=== PATIENT | male | born 1935 | race Caucasian/White ===

== ENCOUNTER 2018-07-21 12:53 | Outpatient (CLI) | payer MEDICARE, OTHER | END 2018-07-21 12:54 | disposition home or self-care (01) | LOC: DI 12:53 | PROVIDERS: ATTEND Internal Medicine Cardiovascular Disease | DX: I11.0 Hypertensive heart disease with heart failure (principal); I50.33 Acute on chronic diastolic (congestive) heart failure; I48.91 Unspecified atrial fibrillation; I77.810 Thoracic aortic ectasia | CPT/HCPCS: 93306 ==

== ENCOUNTER 2019-09-30 13:52 | Outpatient (CLI) | payer MEDICARE, OTHER ==
[2019-09-30 14:20] LABS: CALCIUM 9.6 mg/dL (8.5-10.3); CREATININE 2.2 mg/dL (0.6-1.2)
== END 2019-09-30 13:53 | disposition home or self-care (01) ==
LOC: LAB 13:52
PROVIDERS: ATTEND Internal Medicine
DX: I50.32 Chronic diastolic (congestive) heart failure (principal)
CPT/HCPCS: 36415; 80048

== ENCOUNTER 2020-02-29 22:11 | Emergency (ER) | payer MEDICARE, OTHER ==
--- NOTE | 2020-02-29 22:17 | ED Physician Documentation ---
History of Present Illness - Stated complaint Stated Complaint: ARM LAC - History obtained from History obtained from: Patient (The patient is a very pleasant 85-year-old male who presents with left forearm skin tear he has on Coumadin he denies any other complaints the patient was in his yard doing some yard work when he was trying to move a tree branch when the tree branch accidentally caught on his left upper extremity and caused a superficial skin tear he denies any other complaints. He is right-hand dominant.) Review of Systems Constitutional: reports: Reviewed and negative Eyes: reports: Reviewed and negative Ears: reports: Reviewed and negative Nose: reports: Reviewed and negative Throat: reports: Reviewed and negative Cardiac: reports: Reviewed and negative Respiratory: reports: Reviewed and negative GI: reports: Reviewed and negative : reports: Reviewed and negative Skin: reports: Other (left forearm skin tear) Musculoskeletal: reports: Reviewed and negative Neurologic: reports: Reviewed and negative Psychiatric: reports: Reviewed and negative Endocrine: reports: Reviewed and negative Immunocompromised: reports: Reviewed and negative PD PAST MEDICAL HISTORY - Allergies Allergies/Adverse Reactions: Allergies Allergy/AdvReac Type Severity Reaction Status Date / Time No Known Drug Allergies Allergy Verified 02/29/20 22:16 PD ED PE NORMAL - Vitals Vital signs reviewed: Yes - General General: Alert and oriented X 3, No acute distress, Well developed/nourished - HEENT HEENT: PERRL - Neck Neck: Supple, no meningeal sign - Cardiac Cardiac: RRR, No murmur - Respiratory Respiratory: Clear bilaterally - Abdomen Abdomen: Normal bowel sounds, Soft, Non tender, Non distended - Derm Derm: Other (4 x 3 cm jagged skin tear to dorsal aspect of left forearm.Bleeding is controlled, no foreign bodies identified, Wound edges approximated. Radial pulses are 2+ and symmetric radian, median, ulnar motor and sensory exam are intact radial pulses are 2+ and symmetric bell staff strength is 5 out of 5 compartments are soft neurovascular intact.) - Extremities Extremities: Other (4 x 3 cm jagged skin tear to dorsal aspect of left forearm.Bleeding is controlled, no foreign bodies identified, Wound edges approximated. 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, No motor deficit, No sensory deficit, Normal speech - Psych Psych: Normal mood, Normal affect Results - Vitals Vitals: Vital Signs - 24 hr 02/29/20 22:16 Temperature 36.5 C Heart Rate 83 Respiratory 14 Rate Blood Pressure 190/83 H O2 Saturation 96 Oxygen O2 Source Room air Procedures - General procedure General procedure: Left forearm skin tear was copiously irrigated, no foreign bodies identified a superficial skin flap was approximated well bacitracin was applied and a simple pressure dressing was applied tetanus was updated post procedure he is neurovascular intact bell staff strength is 5 out of 5 2+ palpable radial pulses sensations intact light touch neurovascular is intact. Departure - Departure Disposition: 01 Home, Self Care Clinical Impression: Skin tear Condition: Stable Instructions: ED Avulsion Dermal Follow-Up: SUKUMAR VELASQUEZ MD [Primary Care Provider] - Within 1 week Discharge Date/Time: 02/29/20 22:57
[2020-02-29 22:22] VITALS: BP 190/83
[2020-02-29] MEDS ORDERED: TETANUS/DIPHTHERIA/PERTUSSIS 0.5 ML SYRINGE IM ONE (22:28)
[2020-02-29] MEDS ORDERED: BACITRACIN ZINC OINT 1 PACKET TOP STA (22:28)
== END 2020-02-29 22:57 | disposition home or self-care (01) ==
LOC: ED 22:11
DX: S51.812A Laceration without foreign body of left forearm, initial encounter (principal); W18.30XA Fall on same level, unspecified, initial encounter; W22.8XXA Striking against or struck by other objects, initial encounter; Y93.H2 Activity, gardening and landscaping; Y92.007 Garden or yard of unspecified non-institutional (private) residence as the place of occurrence of the external cause
CPT/HCPCS: 90471; 90715; 99283; A9270

== ENCOUNTER 2021-03-09 15:14 | Outpatient (CLI) | payer MEDICARE, OTHER ==
[2021-03-09 15:59] LABS: BASOPHILS % (AUTO) 0.8 %; EOSINOPHILS # (AUTO) 0.5 10^3/uL (0.0-0.7); HCT - HEMATOCRIT 30.6 % (42.0-52.0); HGB - HEMOGLOBIN 9.2 g/dL (14.0-18.0); LYMPHOCYTES # (AUTO) 0.9 10^3/uL (1.5-3.5); LYMPHOCYTES % (AUTO) 18.2 %; MEAN CORPUSCULAR HEMOGLOBIN 26.1 pg (27.0-31.0); MEAN CORPUSCULAR HGB CONC 30.1 g/dL (32.0-36.0); MEAN CORPUSCULAR VOLUME 86.7 fL (80.0-94.0); MEAN PLATELET VOLUME 9.9 fL (7.4-11.4); MONOCYTES # (AUTO) 0.7 10^3/uL (0.0-1.0); MONOCYTES % (AUTO) 14.4 %; NEUTROPHILS # (AUTO) 2.8 10^3/uL (1.5-6.6); NEUTROPHILS % (AUTO) 56.4 %; PLT - PLATELET COUNT 124 10^3/uL (130-450); RED BLOOD COUNT 3.53 10^6/uL (4.70-6.10); RED CELL DISTRIBUTION WIDTH 18.6 % (12.0-15.0)
[2021-03-09 16:13] LABS: ALBUMIN 3.6 g/dL (3.2-5.5); ALBUMIN/GLOBULIN RATIO 1.2 (1.0-2.2); BILIRUBIN,TOTAL 0.6 mg/dL (0.2-1.0); CALCIUM 9.3 mg/dL (8.5-10.3); CREATININE 2.8 mg/dL (0.6-1.2); CRP - C-REACTIVE PROTEIN 1.1 mg/dL (0-1.0); POTASSIUM 4.8 mmol/L (3.5-5.0); TOTAL PROTEIN 6.7 g/dL (6.7-8.2)
== END 2021-03-09 15:15 | disposition home or self-care (01) ==
LOC: LAB 15:14
DX: R19.7 Diarrhea, unspecified (principal)
CPT/HCPCS: 36415; 80053; 85025; 85651; 86140

== ENCOUNTER 2021-03-10 08:00 | Outpatient (CLI) | payer MEDICARE, OTHER | END 2021-03-10 23:59 | disposition home or self-care (01) | LOC: LAB.R 08:00 | PROVIDERS: ATTEND Nuclear Medicine Nuclear Cardiology | DX: R19.7 Diarrhea, unspecified (principal) | CPT/HCPCS: 0097U; 81599; 87046 ==

== ENCOUNTER 2021-12-03 16:43 | Outpatient (CLI) | payer MEDICARE, OTHER | END 2021-12-03 16:44 | disposition EMS.NT | LOC: EMS 16:43 | DX: I95.9 Hypotension, unspecified (principal) ==

== ENCOUNTER 2021-12-03 17:31 | Inpatient (IN) | payer MEDICARE, OTHER ==
[2021-12-03 18:04] LABS: BASOPHILS % (AUTO) 0.7 %; EOSINOPHILS # (AUTO) 0.5 10^3/uL (0.0-0.7); EOSINOPHILS % (AUTO) 12.2 %; HCT - HEMATOCRIT 26.5 % (42.0-52.0); HGB - HEMOGLOBIN 8.5 g/dL (14.0-18.0); LYMPHOCYTES # (AUTO) 0.7 10^3/uL (1.5-3.5); LYMPHOCYTES % (AUTO) 16.7 %; MEAN CORPUSCULAR HEMOGLOBIN 26.8 pg (27.0-31.0); MEAN CORPUSCULAR HGB CONC 32.1 g/dL (32.0-36.0); MEAN CORPUSCULAR VOLUME 83.6 fL (80.0-94.0); MEAN PLATELET VOLUME 9.2 fL (7.4-11.4); MONOCYTES # (AUTO) 0.4 10^3/uL (0.0-1.0); MONOCYTES % (AUTO) 9.6 %; NEUTROPHILS # (AUTO) 2.6 10^3/uL (1.5-6.6); NEUTROPHILS % (AUTO) 60.3 %; PLT - PLATELET COUNT 79 10^3/uL (130-450); RED BLOOD COUNT 3.17 10^6/uL (4.70-6.10); RED CELL DISTRIBUTION WIDTH 20.3 % (12.0-15.0); WHITE BLOOD COUNT 4.3 x10^3/uL (4.8-10.8)
--- NOTE | 2021-12-03 18:04 | ED Physician Documentation ---
History of Present Illness - Stated complaint Stated Complaint: LOW BP - Chief complaint Chief Complaint: Resp - Additonal information Additional information: 86-year-old gentleman who has a history of congestive heart failure, renal insufficiency as well as atrial fibrillation comes to the emergency department for evaluation of hypotension. Much of the history is provided by his . She reports that his busser recently increased his torsemide to 40 mg daily (11/25/2021). She checks his blood pressure multiple times a day and at home has found that his blood pressures were in the 60s to 80s systolic. She is also noted that he has increased his weight by 2 kg over the last 24 hours despite reduced p.o. intake of only 32 ounces. Due to the declining blood pressure she did not give him the hydralazine today. Patient's reports that the most recent echocardiogram completed in October showed a pericardial effusion, a pleural effusion as well as some ascites in his abdomen. It is for this reason that the torsemide was increased. On presentation to the emergency department patient is alert and does appear well. His initial EKG shows atrial fibs with left bundle branch block as well as a rate that will drop into the low 40s. His shows me a record of his home blood pressures and heart rates and often he does have heart rates in the 40s. Meds: Carvedilol, allopurinol, torsemide, hydralazine, Coumadin, levothyroxine, Isorbide Cardiologust: Dr. Bennett PCP: Dr. Linden Wilkerson Senior Catering Sales Manager: Aly Code Status: Full code Per Dr. Bennett Recessing Machine Operator at Most recent echocardiogram in October did show an ejection fraction of 50% with global hypokinesis. He did have a mild calcific aortic stenosis. Mild mitral regurg as well as moderate tricuspid regurg. known moderate pericardial effusion MyChart labs in October 2021 showed a BNP 466 and a BUN/creatinine of 81/3.25 respectively Review of Systems Constitutional: denies: Fever Ears: reports: Reviewed and negative Nose: reports: Reviewed and negative Throat: reports: Reviewed and negative Cardiac: denies: Chest pain / pressure, Palpitations, Pedal edema (Unchanged) Respiratory: reports: Cough. denies: Dyspnea GI: reports: Abdominal Pain. denies: Nausea, Vomiting : reports: Reviewed and negative Skin: denies: Rash, Lesions Musculoskeletal: reports: Reviewed and negative PD PAST MEDICAL HISTORY - Present Medications Home Medications: Ambulatory Orders Medication Instructions Recorded Confirmed Atorvastatin [Lipitor] 12/03/21 Carvedilol [Coreg] BID 12/03/21 Losartan [Cozaar] 25 mg 12/03/21 Torsemide 30 mg 12/03/21 Warfarin [Coumadin] 12/03/21 allopurinoL [Zyloprim] 12/03/21 hydrALAZINE [Apresoline] 50 mg 12/03/21 - Allergies Allergies/Adverse Reactions: Allergies Allergy/AdvReac Type Severity Reaction Status Date / Time clindamycin Allergy Rash Verified 12/03/21 17:47 oxycodone [From OxyContin] Allergy Rash Verified 12/03/21 17:47 PD ED PE EXPANDED - General General: Alert, No acute distress - Cardiac Cardiac: Allen, Irregularly irregular, Murmur Present, Radial strong equal, Pedal strong equal, Cap refill < 2 sec - Respiratory Respiratory: Other (Crackles in bilateral lower lobes.). No: Distress, Labored - Abdomen Abdomen: Normal Bowel sounds. No: Tender to palpation - Back Back: Normal exam. No: Vertebral tenderness - Extremities Extremities: Normal. No: Deformity, Tenderness - Neuro Neuro: Alert and Oriented X 3, CNII-XII intact - GCS Eye Opening: Spontaneous Motor: Obeys Commands Verbal: Oriented Total: 15 Results - Vitals Vitals: Vital Signs - 24 hr 12/03/21 12/03/21 12/03/21 17:38 18:17 19:00 Temperature 35.7 C L Heart Rate 54 L 47 L 41 L Respiratory 24 14 13 Rate Blood Pressure 96/52 L 92/55 L 94/61 O2 Saturation 97 98 98 Oxygen O2 Source Nasal cannula Oxygen Flow Rate 2 - EKG (time done) 1751 Rate: Rate (enter#) (66) Rhythm: Atrial fibrillation (Mildly bradycardic in the 50s and 60s) Brimson: Other Intervals: Prolonged QT, LBBB QRS: Normal Ischemia: Non specific changes Compare to prior EKG: Old EKG unavailable Computer interpretation: Agree with computer - Labs Labs: Laboratory Tests 12/03/21 12/03/21 12/03/21 17:56 17:56 17:56 WBC 4.3 L RBC 3.17 L Hgb 8.5 L Hct 26.5 L MCV 83.6 MCH 26.8 L MCHC 32.1 RDW 20.3 H Plt Count 79 L MPV 9.2 Neut # (Auto) 2.6 Lymph # (Auto) 0.7 L [place] # (Auto) 0.4 Eos # (Auto) 0.5 Baso # (Auto) 0.0 Absolute Nucleated RBC 0.00 Nucleated RBC % 0.0 Manual Slide Review Indicated Platelet Estimate DECREASED (<130,000) Platelet Morphology NORMAL APPEARANCE RBC Morph Micro Appear 2+ ANISOCYTOSIS PT INR Sodium 136 Potassium 5.0 Chloride 105 Carbon Dioxide 19 L Anion Gap 12.0 BUN 129 H* Creatinine 4.6 H Estimated GFR (MDRD) 12 L Glucose 153 H Lactic Acid 0.7 Calcium 9.0 Magnesium Total Bilirubin 0.5 AST 18 ALT 19 Alkaline Phosphatase 111 Troponin I High Sens B-Natriuretic Peptide Total Protein 7.2 Albumin 3.7 Globulin 3.5 Albumin/Globulin Ratio 1.1 TSH 12/03/21 12/03/21 12/03/21 17:56 17:56 17:56 WBC RBC Hgb Hct MCV MCH MCHC RDW Plt Count MPV Neut # (Auto) Lymph # (Auto) [place] # (Auto) Eos # (Auto) Baso # (Auto) Absolute Nucleated RBC Nucleated RBC % Manual Slide Review Platelet Estimate Platelet Morphology RBC Morph Micro Appear PT INR Sodium Potassium Chloride Carbon Dioxide Anion Gap BUN Creatinine Estimated GFR (MDRD) Glucose Lactic Acid Calcium Magnesium Total Bilirubin AST ALT Alkaline Phosphatase Troponin I High Sens 73.8 H* B-Natriuretic Peptide 358 H Total Protein Albumin Globulin Albumin/Globulin Ratio TSH 6.46 H 12/03/21 12/03/21 17:56 17:56 WBC RBC Hgb Hct MCV MCH MCHC RDW Plt Count MPV Neut # (Auto) Lymph # (Auto) [place] # (Auto) Eos # (Auto) Baso # (Auto) Absolute Nucleated RBC Nucleated RBC % Manual Slide Review Platelet Estimate Platelet Morphology RBC Morph Micro Appear PT 54.2 H INR 4.9 H* Sodium Potassium Chloride Carbon Dioxide Anion Gap BUN Creatinine Estimated GFR (MDRD) Glucose Lactic Acid Calcium Magnesium 2.3 Total Bilirubin AST ALT Alkaline Phosphatase Troponin I High Sens B-Natriuretic Peptide Total Protein Albumin Globulin Albumin/Globulin Ratio TSH - Rads (name of study) CXR Radiology: Final report received (Markedly enlarged heart with appearance of increased vascularity overall consistent with edema. Bilateral effusions are present. There is developing airspace disease such as pneumonia and/or atelectasis within the bases cannot be excluded.) PD MEDICAL DECISION MAKING - ED course Complexity details: reviewed results, re-evaluated patient, d/w patient ED course: 86-year-old male who has a history of congestive heart failure, atrial fibrillation as well as chronic kidney disease stage IV, presents to the emergency department for evaluation of hypotension that the has noted at home over the last 24 hours. Reportedly his busser increased his furosemide from 20 mg to 40 mg daily on 11/25/2021. Today his screening labs do show worsening CKD. His BUN/Cr has increased to 129/4.6 from 81/3.2 respectively. His BMP has declined from 466 to 358 today. His chest x-ray does show gross cardiomegaly with bilateral pleural effusions likely suggesting early pneumonia and/or pulmonary edema. However in review of the MyChart chest x-ray this does not seem markedly different though I cannot review the actual imaging. Given that his BNP has actually declined and his BUN and creatinine have risen over the last month with new associated hypotension I suspect that he may be volume depleted. Though worsening HF and an EF may c ontribute to poor CKD. Therefore I am cautiously giving him 250 mL of saline via IV. 2005: Spoken with Dr. Bentley her nighttime hospitalist who agrees to admit this patient for further evaluation and stabilization of his chronic kidney disease and heart failure. He will be admitted to our ICU. Departure - Departure Disposition: 66 [facility] DC/Xfer Clinical Impression: Hypoxia CHF (congestive heart failure) Qualifiers: Heart failure type: unspecified Heart failure chronicity: chronic Qualified Code(s): I50.9 - Heart failure, unspecified CKD (chronic kidney disease) Qualifiers: Chronic kidney disease stage: stage 4 (severe) Qualified Code(s): N18.4 - Chronic kidney disease, stage 4 (severe) Condition: Fair
[2021-12-03 18:14] LABS: SLIDE REVIEW? Indicated
[2021-12-03 18:39] LABS: PT - PROTHROMBIN TIME 54.2 secs (9.9-12.6)
[2021-12-03 18:41] LABS: ALBUMIN 3.7 g/dL (3.2-5.5); ALBUMIN/GLOBULIN RATIO 1.1 (1.0-2.2); BILIRUBIN,TOTAL 0.5 mg/dL (0.2-1.0); CREATININE 4.6 mg/dL (0.6-1.2); TOTAL PROTEIN 7.2 g/dL (6.7-8.2)
[2021-12-03] MEDS ORDERED: SODIUM CHLORIDE 0.9% 250 ML IV STA (18:44)
[2021-12-03 18:46] LABS: INR 4.9 (0.8-1.2)
[2021-12-03 19:02] LABS: PLATELET ESTIMATE, MANUAL DECREASED (<130,000) (NORMAL); PLATELET MORPHOLOGY NORMAL APPEARANCE (NORMAL); RBC MORPHOLOGY (MULTIPLE) 2+ ANISOCYTOSIS (NORMAL)
--- NOTE | 2021-12-03 19:08 | XRAY Report ---
PROCEDURE: Chest 1 View X-Ray INDICATIONS: hypotension TECHNIQUE: One view of the chest was acquired. COMPARISON: None FINDINGS: Surgical changes and devices: None. Lungs and pleura: There is diffuse appearance of increased vascularity. Blunting of the costophrenic angles are present as well as increased interstitial opacities at the bases. Mediastinum: Mediastinal contours appear normal. Heart size is markedly enlarged. Bones and chest wall: No suspicious bony lesions. Overlying soft tissues appear unremarkable. IMPRESSION: Markedly enlarged heart with appearance of increased vascularity overall consistent with edema. Bilat eral effusions are present. There is developing airspace disease such as pneumonia and/or atelectasis within the bases cannot be excluded. Reviewed by: Katie Pereyra MD on 12/03/2021 7:[address] [facility] Approved by: Katie Pereyra MD on 12/03/2021 7:[address] [facility] Station ID: [id number]
[2021-12-03] MEDS ORDERED: ACETAMINOPHEN 325 MG TABLET PO PRN (20:11)
[2021-12-03] MEDS ORDERED: ONDANSETRON 4 MG/2 ML VIAL IVP PRN (20:11)
--- NOTE | 2021-12-03 20:41 | HISTORY & PHYSICAL EXAMINATION ---
Chief Complaint - Chief Complaint Chief Complaint: Hypotension, BP of 60 measured at home History of Present Illness - Admitted From Admitted From:: ED - History Obtained From History obtained from: ED provider and the patient - History of Present Illness HPI Comment/Other: This is an 86 y/o white male with Hx of obesity (BMI 37), chronic Afib on Coumadin, CHF with EF 35% by Echo in 2018, EF 50% by Echo 11/09, followed by Dr Bennett at Cardiology, also Hx CKD with creat 2.8 in 2019 and creat 3.2 in 11/09, followed by at Nephrology. His last Echo done 11/09 showed a ?moderate pericardial effusion, and he has pleural effusions and ascites, thus his Physician Advisor doubled his loop diuretic dose 1 week ago. His monitors his vital signs several times a day and documents them; and brought him to the ED today concerned over BP of 60 to 80 systolic for the past day. She did not give him his Hydralazine, but he took his other meds which include Coreg, Isosorbide and Torsemide. In the ED, labwork showed creat 4.6, Hgb 8.5, INR 4.9, also troponin 73 and BNP 358. The ED provider spoke to his Accounts Receivable Specialist and obtained the most recent Echo information, but no beds for transferring him there were available. His BP was 90/50 and HR 40's in the ED. He received 250cc of saline and the Hospitalist Team was contacted for admission. The patient is hard of hearing and is a poor historian. Most of the ED information was obtained from his s.o. His CODE BLUE wishes are to be Full Code (he told the ED provider "he has things he still wants to do"). History - Past Medical History Cardiovascular: reports: Congestive heart failure, Atrial fibrillation Respiratory: reports: Sleep apnea, CPAP use Neuro: reports: Other (poor memory and tremor are noted (but he knows no Dx)) Endocrine/Autoimmune: reports: HyPOthyroidism HEENT: reports: Chronic hearing loss Musculoskeletal: reports: Gout - Family & Social History Living arrangement: At home Living Situation: With spouse/s.o. Social History Notes: His smoking and alcohol use are unknown Meds/Allgy - Home Medications Home Medications: Ambulatory Orders Medication Instructions Recorded Confirmed Atorvastatin [Lipitor] 12/03/21 Carvedilol [Coreg] BID 12/03/21 Losartan [Cozaar] 25 mg 12/03/21 Torsemide 30 mg 12/03/21 Warfarin [Coumadin] 12/03/21 allopurinoL [Zyloprim] 12/03/21 hydrALAZINE [Apresoline] 50 mg 12/03/21 - Allergies Allergies/Adverse Reactions: Allergies Allergy/AdvReac Type Severity Reaction Status Date / Time clindamycin Allergy Rash Verified 12/03/21 17:47 oxycodone [From OxyContin] Allergy Rash Verified 12/03/21 17:47 Review of Systems - Constitutional Constitutional: reports: Fatigue - Eyes Eyes: reports: Other (Uses preservision eye drops) - Respiratory Respiratory: reports: SOB with exertion, Other (Uses CPAP machine) - All Other Systems All Other Systems: reports: Reviewed and negative (He is poor historian and is not sure of details) Exam - Vital Signs Reviewed Vital Signs: Yes Vital Signs: Vital Signs x48h Temp Pulse Resp BP Pulse Ox 12/03/21 20:18 46 L 17 88/66 L 92 12/03/21 19:00 41 L 13 94/61 98 12/03/21 18:17 47 L 14 92/55 L 98 12/03/21 17:38 35.7 C L 54 L 24 96/52 L 97 - Physical Exam General Appearance: positive: No acute distress, Alert Eyes Bilateral: positive: Normal inspection, EOMI ENT: positive: ENT inspection nml, Other (CHEESH-NA) Neck: positive: Other ((+) JVD) Respiratory: positive: No respiratory distress, Other (Diominished breath sounds) Cardiovascular: positive: Bradycardia, Systolic murmur Abdomen: positive: Non-tender, Nml bowel sounds, No distention Skin: positive: Warm, Dry, Pallor Neurologic/Psychiatric: positive: Oriented x3, Other (Poor memory, slow to answer but no garbling, has resting tremor of hands, is CHEESH-NA) Conclusion/Plan - Problem List (1) Hypotension Conclusion/Plan: This is probably multifactorial: Related to his poor cardiac output from CHF, from his several medications that drop the blood pressure and possibly from hypothyroidism. We will admit him to the ICU where frequent vital signs monitoring can be done. Hold his Coreg, torsemide, hydralazine, isosorbide, and losartan Start midodrine 2.5 3 times daily with meals. Increase dose possibly. Will consider iv Albumin treatment to increase serum oncotic pressure and try to pull in his third spaced fluid. (2) Bradycardia Conclusion/Plan: This is probably related to intrinsic conduction system disease since his beta- stephanie dose is already pretty low at 6.25 twice daily. Hold Coreg, allow the heart rate to rise. The goal is a resting heart rate in the 60s. If washing out the beta-stephanie does not improve his heart rate in 24 hours, he would be a candidate for pacemaker and probably pacer/defibrillator. We would then contact his Accounts Receivable Specialist for transfer to . (3) Acute kidney injury superimposed on CKD Conclusion/Plan: He had CKD previously, etiology unknown. He now probably has cardio-renal syndrome and may have had exacerbation of his renal function from hypoperfusion and ATN. Avoid nephrotoxins. Hold blood pressure lowering medicines as above. Will stop the loop diuretic for a day but not give any further fluids in the 250 cc he got in the ED and let his fluids equilibrate. Will consider iv Albumin treatment to increase serum oncotic pressure and possibly pull in third spaced fluid (4) Chronic systolic congestive heart failure, NYHA class 3 Conclusion/Plan: His chest x-ray shows mild vascular congestion, and he has mild but chronic leg edema and apparently known pleural effusions and ascites. We will hold many of his medications for about 24 hours and see where his blood pressure and heart rate equilibrate, and then resume the diuretic and possibly a lower dose of Coreg, followed by Hydralazine, if BP allows. Given his LBBB, he would be a candidate for a biventricular/defibrillator, which would improve LV synchrony and increase his EF. If this becomes his only option, we will reach out to his Accounts Receivable Specialist for transfer to . (5) Hypothyroidism Conclusion/Plan: In his screening labs the TSH is very elevated at 6.35 suggesting that his thyroid dose is adequately low. Being clinically hypothyroid may also be giving him the low blood pressure and bradycardia. We will check a free T4. Will resume thyroid medications when they are reconciled but at a slightly higher dose (6) Chronic a-fib Conclusion/Plan: As per Hx. (7) Aortic stenosis Conclusion/Plan: Mild aortic stenosis was reported on the Echo done 1 month ago, this is from the information obtained by ED provider from Dr. Bennett, his Accounts Receivable Specialist (8) Elevated INR (international normalized ratio) Conclusion/Plan: The INR is excessive, but there are no signs of bleeding, so he does not need vitamin K. Will not give the INR for several days, follow INR daily, resume the Coumadin when the INR is less than 3. Target INR is 2-3. (9) Anemia Conclusion/Plan: Being chronically significantly anemic could be adding to his CHF and volume overload. Because of the excessive INR, there is concerned that he may have blood loss somewhere. Will check guaiac of stool. We will check B12, folate levels and iron stores and replace if low. Follow hemoglobin daily, plan would be to transfuse if it goes under 7 (10) Thrombocytopenia Conclusion/Plan: His baseline platelet level is unknown, this may be a chronic problem or also related to blood loss. Follow CBC daily. Will not resume the Coumadin if platelets are very low (? <50) (11) Hx of gout Conclusion/Plan: Continue Allopurinol (12) Poor memory Conclusion/Plan: Even after repeating myself because of his hard of hearing, his answers were very general and not precise. I suspect there is dementia from cerebral hypoperfusion or ischemia. - Lab Results Fish Bones: 12/03/21 17:56 12/03/21 17:56 - Diagnostic Imaging Results Diagnostic Imaging Results: positive: Final report reviewed - EKG Results EKG Interpreted Independently: Yes EKG Findings: Afib, rate 40, LBBB. - Other Other Results/Comments: Attestation: The patient is expected to be discharged or transferred to another facility within 96 hours: Yes.
[2021-12-03 21:25] LABS: B. PARAPERTUSSIS- RESP PCR PAN NOT DETECTED; B. PERTUSSIS- RESP PCR PANEL NOT DETECTED; C. PNEUMONIAE- RESP PCR PANEL NOT DETECTED; CORONAVIRUS 229E-RESP PCR NOT DETECTED; CORONAVIRUS HKU1-RESP PCR NOT DETECTED; CORONAVIRUS NL63-RESP PCR NOT DETECTED; CORONAVIRUS OC43-RESP PCR NOT DETECTED; HUMAN METAPNEUMOVIRUS NOT DETECTED; INFLUENZA A- RESP PCR PANEL NOT DETECTED; INFLUENZA B - RESP PCR PANEL NOT DETECTED; M. PNEUMONIAE- RESP PCR PANEL NOT DETECTED; PARAINFLUENZA VIRUS 1 NOT DETECTED; PARAINFLUENZA VIRUS 2 NOT DETECTED; PARAINFLUENZA VIRUS 3 NOT DETECTED; PARAINFLUENZA VIRUS 4 NOT DETECTED; RHINOVIRUS/ENTEROVIRUS NOT DETECTED; RSV- RESP PCR PANEL NOT DETECTED; SARS-CoV-2 -RESP PCR PANEL NOT DETECTED
[2021-12-03] MEDS ORDERED: ATORVASTATIN 10 MG TABLET PO SCH (23:07)
[2021-12-04] MEDS: FAMOTIDINE 20 MG TABLET PO SCH ×3 (00:04→22:00)
[2021-12-04] MEDS: SODIUM CHLORIDE FLUSH 0.9% 10 ML SYRINGE IVP SCH ×4 (00:17→22:53)
[2021-12-04 01:09] LABS: BILIRUBIN,URINE NEGATIVE (NEGATIVE); GLUCOSE, URINE (UA) NEGATIVE (NEGATIVE); KETONES,URINE (UA) TRACE mg/dL (NEGATIVE); LEUKOCYTE ESTERASE, URINE TRACE (NEGATIVE); NITRITE,URINE NEGATIVE (NEGATIVE); OCCULT BLOOD,URINE LARGE (NEGATIVE); PROTEIN,URINE >=300 mg/dL (NEGATIVE); UROBILINOGEN,URINE 0.2 (NORMAL) E.U./dL (NORMAL)
[2021-12-04 01:16] LABS: BACTERIA,URINE Few /HPF (None Seen); CLARITY,URINE SL. CLOUDY (CLEAR); RBC,URINE TNTC /HPF (0-5); SQUAMOUS EPITHELIAL CELL,UR FEW Squamous (<= Few)
[2021-12-04 05:38] LABS: BASOPHILS % (AUTO) 0.5 %; EOSINOPHILS # (AUTO) 0.4 10^3/uL (0.0-0.7); EOSINOPHILS % (AUTO) 11.4 %; HCT - HEMATOCRIT 24.5 % (42.0-52.0); LYMPHOCYTES # (AUTO) 0.7 10^3/uL (1.5-3.5); LYMPHOCYTES % (AUTO) 18.7 %; MEAN CORPUSCULAR HEMOGLOBIN 26.8 pg (27.0-31.0); MEAN CORPUSCULAR HGB CONC 32.7 g/dL (32.0-36.0); MEAN CORPUSCULAR VOLUME 82.2 fL (80.0-94.0); MONOCYTES # (AUTO) 0.4 10^3/uL (0.0-1.0); MONOCYTES % (AUTO) 10.9 %; NEUTROPHILS # (AUTO) 2.3 10^3/uL (1.5-6.6); NEUTROPHILS % (AUTO) 58.2 %; PLT - PLATELET COUNT 89 10^3/uL (130-450); RED BLOOD COUNT 2.98 10^6/uL (4.70-6.10); WHITE BLOOD COUNT 3.9 x10^3/uL (4.8-10.8)
[2021-12-04 05:53] LABS: PT - PROTHROMBIN TIME 58.6 secs (9.9-12.6)
[2021-12-04 06:05] LABS: FREE T4 (FREE THYROXINE) 0.9 ng/dL (0.58-1.64)
[2021-12-04 06:13] LABS: FOLATE 17.37 ng/mL (5.90 - >24.8)
[2021-12-04 06:16] LABS: ALBUMIN 3.5 g/dL (3.2-5.5); ALBUMIN/GLOBULIN RATIO 1.1 (1.0-2.2); BILIRUBIN,TOTAL 0.6 mg/dL (0.2-1.0); CALCIUM 8.9 mg/dL (8.5-10.3); CREATININE 4.8 mg/dL (0.6-1.2); MAGNESIUM 2.2 mg/dL (1.7-2.8); PHOSPHORUS 6.5 mg/dL (2.5-4.6); POTASSIUM 5.4 mmol/L (3.5-5.0); TOTAL PROTEIN 6.7 g/dL (6.7-8.2)
[2021-12-04 06:18] LABS: INR 5.3 (0.8-1.2)
--- NOTE | 2021-12-04 07:30 | PROVIDER PROGRESS NOTE ---
Assessment/Plan - Problem List (1) Hypotension Assessment/Plan: Systolic blood pressure improved to the low 100s Etiology likely multifactorial. Secondary to poor cardiac output from CHF, medications. Patient was given 250 mL of normal saline in the ED. We will avoid administering any additional IV fluids because patient's chest x- ray showed pulmonary edema. His medications which include Coreg, torsemide, hydralazine and losartan were held Midodrine 2.5 mg 3 times daily with meals initiated. (2) Bradycardia Assessment/Plan: Heart rate has fluctuated between 50 and 87 today. Patient's beta-stephanie has been held. (3) Acute kidney injury superimposed on CKD Assessment/Plan: No change in patient's renal function. Creatinine is 4.8 BUN 137 estimated GFR 12. We will continue to monitor. (4) Chronic systolic congestive heart failure, NYHA class 3 Assessment/Plan: Chest x-ray showed vascular congestion indicative of mild pulmonary edema He has mild lower extremity edema He required 2 L of oxygen via nasal cannula to maintain his oxygen saturation in the 90s this morning. His diuretics and beta-stephanie currently on hold due to hypotension. (5) Aortic stenosis Assessment/Plan: Mild aortic stenosis per report of echocardiogram done 1 month ago. Patient to follow-up with his manager forensic Dr. Bennett. (6) Chronic a-fib Assessment/Plan: Patient is normally on Coreg 6.25 mg p.o. twice daily. However this is currently on hold due to bradycardia. He also takes Coumadin. This is also currently on hold due to an INR of 5.3 today. (7) Hx of gout Assessment/Plan: On allopurinol 100 mg p.o. daily. (8) Hypothyroidism Assessment/Plan: On Synthroid 200 mcg daily AC. TSH was 6.46 with free T4 of 0.9 (9) Poor memory Assessment/Plan: Though patient was awake and alert he seemed confused and was not able to answer questions about where he was or why he was here. It is possible the patient has dementia. However the patient was also hypothermic with a temperature of 33.9 C for which he required Loree hugger and had a low white blood cell count of 3.9. Considering the possibility of an infection he was also started on empiric antibiotics with Rocephin and azithromycin. Hypoperfusion due to hypotension and bradycardia as well as hypoxia could also be contributing to his memory problem. Most of his cardiac medications are currently on hold. Patient is currently on 2L supplemental oxygen via nasal cannula. (10) Elevated INR (international normalized ratio) Assessment/Plan: INR is currently supratherapeutic at 5.3. We will continue to hold patient's Coumadin. No sign of bleeding. Monitor INR daily (11) Thrombocytopenia Assessment/Plan: Platelet count today was 89. There is no sign of bleeding. INR is supratherapeutic at 5.3 Coumadin is currently on hold. (12) Anemia Assessment/Plan: Hemoglobin is 8.0. We will continue to monitor. - Current Meds Current Meds: Current Medications Generic Name Dose Route Start Last Admin Trade Name Freq PRN Reason Stop Dose Admin Atorvastatin Calcium 10 mg 12/03/21 23:07 12/04/21 00:16 Atorvastatin 10 Mg Tablet PO 10 mg QPM EDA Administration Famotidine 20 mg 12/03/21 21:00 12/04/21 00:04 Famotidine 20 Mg Tablet PO Not Given BID EDA Sodium Chloride 10 ml 12/04/21 01:00 12/04/21 00:17 Sodium Chloride Flush 0.9% 10 Ml Syringe IVP 20 ml 0100,0900,1700 EDA Administration - Lab Result Fish Bone Diagrams: 12/04/21 04:24 12/04/21 04:24 Subjective - Subjective Patient Reports: Other (Patient appeared somewhat confused this morning. He did not seem to know where he was or why he was here. He was trying to get out of bed without specific destination or goal in mind. His oxygen saturation on room air was dropping into the 80s.) Objective Vital Signs: Vital Signs - 24 hr 12/03/21 12/03/21 12/03/21 17:38 18:17 19:00 Temperature 35.7 C L Heart Rate 54 L 47 L 41 L Heart Rate [ Monitoring electrodes] Respiratory 24 14 13 Rate Blood Pressure 96/52 L 92/55 L 94/61 Blood Pressure [Left Brachial artery] O2 Saturation 97 98 98 12/03/21 12/03/21 12/03/21 20:18 21:30 21:48 Temperature 36.4 C L Heart Rate 46 L Heart Rate [ 55 L Monitoring electrodes] Respiratory 17 13 Rate Blood Pressure 88/66 L Blood Pressure [Left Brachial artery] O2 Saturation 92 12/03/21 12/03/21 12/03/21 22:00 22:03 22:16 Temperature Heart Rate Heart Rate [ 56 L 50 L 47 L Monitoring electrodes] Respiratory 20 15 17 Rate Blood Pressure Blood Pressure 78/49 L 91/59 L 112/75 [Left Brachial artery] O2 Saturation 90 L 95 95 12/03/21 12/03/21 12/04/21 22:30 23:00 01:00 Temperature 33.9 C L 34.9 C L Heart Rate Heart Rate [ 50 L 49 L 50 L Monitoring electrodes] Respiratory 17 13 13 Rate Blood Pressure Blood Pressure 122/64 98/55 L 116/73 [Left Brachial artery] O2 Saturation 95 95 96 12/04/21 12/04/21 12/04/21 03:00 05:00 07:00 Temperature 35.9 C L 36.8 C 37.2 C Heart Rate Heart Rate [ 52 L 55 L 56 L Monitoring electrodes] Respiratory 17 16 17 Rate Blood Pressure Blood Pressure 117/73 104/62 111/61 [Left Brachial artery] O2 Saturation 92 93 95 Oxygen O2 Source CPAP Oxygen Flow Rate 2 I&O (Last 24 Hrs): Intake and Output Totals x24h 12/02/21 12/03/21 12/04/21 23:59 23:59 23:59 Intake Total 100 Output Total 0 100 Balance 100 -100 General: Other (Awake, alert but not oriented to place, time or reason) HEENT: PERRLA, EOMI Neck: Supple, No JVD Neuro: Alert, Disoriented Cardiovascular: Regular rate Respiratory: Chest non-tender, Other (Mild Crackles) Abdomen: Normal bowel sounds, Soft, No tenderness Extremities: No clubbing, No cyanosis, No edema Skin: No rashes, No breakdown - Results Results: Laboratory Results WBC 3.9 x10^3/uL (4.8-10.8) L 12/04/21 04:24 RBC 2.98 10^6/uL (4.70-6.10) L 12/04/21 04:24 Hgb 8.0 g/dL (14.0-18.0) L 12/04/21 04:24 Hct 24.5 % (42.0-52.0) L 12/04/21 04:24 MCV 82.2 fL (80.0-94.0) 12/04/21 04:24 MCH 26.8 pg (27.0-31.0) L 12/04/21 04:24 MCHC 32.7 g/dL (32.0-36.0) 12/04/21 04:24 RDW 20.0 % (12.0-15.0) H 12/04/21 04:24 Plt Count 89 10^3/uL (130-450) L 12/04/21 04:24 MPV TNP 12/04/21 04:24 Neut # (Auto) 2.3 10^3/uL (1.5-6.6) 12/04/21 04:24 Lymph # (Auto) 0.7 10^3/uL (1.5-3.5) L 12/04/21 04:24 Gilchrist # (Auto) 0.4 10^3/uL (0.0-1.0) 12/04/21 04:24 Eos # (Auto) 0.4 10^3/uL (0.0-0.7) 12/04/21 04:24 Baso # (Auto) 0.0 10^3/uL (0.0-0.1) 12/04/21 04:24 Absolute Nucleated RBC 0.00 x10^3/uL 12/04/21 04:24 Nucleated RBC % 0.0 /100WBC 12/04/21 04:24 Manual Slide Review Indicated 12/03/21 17:56 Platelet Estimate DECREASED (<130,000) (NORMAL) 12/03/21 17:56 Platelet Morphology NORMAL APPEARANCE (NORMAL) 12/03/21 17:56 RBC Morph Micro Appear 2+ ANISOCYTOSIS (NORMAL) 12/03/21 17:56 PT 58.6 secs (9.9-12.6) H 12/04/21 04:24 INR 5.3 (0.8-1.2) H* 12/04/21 04:24 Sodium 137 mmol/L (135-145) 12/04/21 04:24 Potassium 5.4 mmol/L (3.5-5.0) H 12/04/21 04:24 Chloride 108 mmol/L (101-111) 12/04/21 04:24 Carbon Dioxide 18 mmol/L (21-32) L 12/04/21 04:24 Anion Gap 11.0 (6-13) 12/04/21 04:24 BUN 137 mg/dL (6-20) H* 12/04/21 04:24 Creatinine 4.8 mg/dL (0.6-1.2) H 12/04/21 04:24 Estimated GFR (MDRD) 12 (>89) L 12/04/21 04:24 Glucose 81 mg/dL (70-100) 12/04/21 04:24 Lactic Acid 0.7 mmol/L (0.5-2.2) 12/03/21 17:56 Calcium 8.9 mg/dL (8.5-10.3) 12/04/21 04:24 Phosphorus 6.5 mg/dL (2.5-4.6) H 12/04/21 04:24 Magnesium 2.2 mg/dL (1.7-2.8) 12/04/21 04:24 Iron 32 ug/dL (45-182) L 12/04/21 04:24 TIBC 279 ug/dL (250-450) 12/04/21 04:24 % Saturation 11 % (20-50) L 12/04/21 04:24 Transferrin 199 mg/dL (180-329) 12/04/21 04:24 Total Bilirubin 0.6 mg/dL (0.2-1.0) 12/04/21 04:24 AST 13 IU/L (10-42) 12/04/21 04:24 ALT 17 IU/L (10-60) 12/04/21 04:24 Alkaline Phosphatase 95 IU/L (42-121) 12/04/21 04:24 Troponin I High Sens 73.1 ng/L (2.3-19.7) H* 12/03/21 20:45 B-Natriuretic Peptide 379 pg/mL (5-100) H 12/04/21 04:24 Total Protein 6.7 g/dL (6.7-8.2) 12/04/21 04:24 Albumin 3.5 g/dL (3.2-5.5) 12/04/21 04:24 Globulin 3.2 g/dL (2.1-4.2) 12/04/21 04:24 Albumin/Globulin Ratio 1.1 (1.0-2.2) 12/04/21 04:24 Vitamin B12 1456 pg/mL (180-914) H 12/04/21 04:24 Folate 17.37 ng/mL (5.90 - >24.8) 12/04/21 04:24 TSH 6.46 uIU/mL (0.34-5.60) H 12/03/21 17:56 Free T4 0.90 ng/dL (0.58-1.64) 12/04/21 04:24 Urine Color DARK YELLOW 12/04/21 00:35 Urine Clarity SL. CLOUDY (CLEAR) 12/04/21 00:35 Urine pH 5.0 PH (5.0-7.5) 12/04/21 00:35 Ur Specific [place] 1.025 (1.002-1.030) 12/04/21 00:35 Urine Protein >=300 mg/dL (NEGATIVE) H 12/04/21 00:35 Urine Glucose (UA) NEGATIVE mg/dL (NEGATIVE) 12/04/21 00:35 Urine Ketones TRACE mg/dL (NEGATIVE) 12/04/21 00:35 Urine Occult Blood LARGE (NEGATIVE) H 12/04/21 00:35 Urine Nitrite NEGATIVE (NEGATIVE) 12/04/21 00:35 Urine Bilirubin NEGATIVE (NEGATIVE) 12/04/21 00:35 Urine Urobilinogen 0.2 (NORMAL) E.U./dL (NORMAL) 12/04/21 00:35 Ur Leukocyte Esterase TRACE (NEGATIVE) H 12/04/21 00:35 Urine RBC TNTC /HPF (0-5) H 12/04/21 00:35 Urine WBC 4-5 /HPF (0-3) 12/04/21 00:35 Ur Squamous Epith Cells FEW Squamous (<= Few) 12/04/21 00:35 Urine Bacteria Few /HPF (None Seen) 12/04/21 00:35 Urine Culture Comments INDICATED 12/04/21 00:35 Nasal Adenovirus (PCR) NOT DETECTED 12/03/21 20:10 Nasal B. parapertussis DNA (PCR) NOT DETECTED 12/03/21 20:10 Nasal Coronavir 229E PCR NOT DETECTED 12/03/21 20:10 Nasal Coronavir HKU1 PCR NOT DETECTED 12/03/21 20:10 Nasal Coronavir NL63 PCR NOT DETECTED 12/03/21 20:10 Nasal Coronavir OC43 PCR NOT DETECTED 12/03/21 20:10 Nasal Enterovir/Rhinovir PCR NOT DETECTED 12/03/21 20:10 Nasal Influenza B PCR NOT DETECTED 12/03/21 20:10 Nasal Influenza A PCR NOT DETECTED 12/03/21 20:10 Nasal Parainfluen 1 PCR NOT DETECTED 12/03/21 20:10 Nasal Parainfluen 2 PCR NOT DETECTED 12/03/21 20:10 Nasal Parainfluen 3 PCR NOT DETECTED 12/03/21 20:10 Nasal Parainfluen 4 PCR NOT DETECTED 12/03/21 20:10 Nasal RSV (PCR) NOT DETECTED 12/03/21 20:10 Nasal Screen MRSA (PCR) NEGATIVE (NEGATIVE) 12/03/21 22:05 Nasal B.pertussis DNA PCR NOT DETECTED 12/03/21 20:10 Nasal C.pneumoniae (PCR) NOT DETECTED 12/03/21 20:10 Bob Human Metapneumo PCR NOT DETECTED 12/03/21 20:10 Nasal M.pneumoniae (PCR) NOT DETECTED 12/03/21 20:10 Nasal SARS-CoV-2 (PCR) NOT DETECTED 12/03/21 20:10 ABX Reporting Has patient been on IV antibiotics over the past 48 hours?: Yes
[2021-12-04] MEDS ORDERED: FERROUS SULFATE 325 MG TABLET PO SCH (08:00)
[2021-12-04] MEDS: MIDODRINE 2.5 MG TABLET PO SCH ×3 (08:45→17:19)
[2021-12-04] MEDS ORDERED: allopurinoL 100 MG TABLET PO SCH (09:00)
[2021-12-04] MEDS ORDERED: AZITHROMYCIN INJ 500 MG in SODIUM CHLORIDE 0.9% 250 ML IV SCH (13:00)
[2021-12-04] MEDS ORDERED: cefTRIAXone 1 GM in SODIUM CHLORIDE 0.9% MINIBAG 100 ML IV SCH (13:00)
[2021-12-04] MEDS ORDERED: ACETAMINOPHEN 325 MG TABLET PO PRN (17:03)
[2021-12-04] MEDS ORDERED: ONDANSETRON 4 MG/2 ML VIAL IVP PRN (17:07)
[2021-12-04] MEDS ORDERED: FUROSEMIDE 40 MG/4 ML VIAL IVP STA (19:14)
[2021-12-04] MEDS ORDERED: ALBUMIN 25% 12.5 GM/50 ML VIAL IV STA (19:15)
--- NOTE | 2021-12-04 19:38 | ED Physician Documentation ---
ED Addendum - Addendum Addendum: 12/04/21 19:37 Called to the ICU by Dr. Gallardo to place a central line in this critically ill gentleman. His INR was over five. I discussed this with the hospitalist and felt that medical necessity required the procedure to be done despite this. On arrival to the bedside I found a somnolent hypotensive gentleman who was minimally responsive. Procedure note, central line: Verbal informed consent was obtained, risks including bleeding, infection, pneumothorax, arterial puncture, and need for surgery were discussed with the patient. The patient was prepped twice with ChloraPrep. I wore cap, mask, gown, sterile gloves. Full sterile sheet was utilized. Using real-time ultrasound guidance the right internal jugular vein was accessed and using Seldinger technique a triple-lumen 7 [place] central line was placed in standard fashion and sutured into place without immediate co mplications.
[2021-12-04 20:00] LABS: ABG BASE EXCESS -12.8 mmol/L (-2.0-3.0); ABG HCO3 16.2 mmol/L (22.0-26.0); ABG OXYGEN SATURATION 92 % (94-98); ABG PCO2 53 mmHg (34-45); ABG PO2 71 mmHg (80-100); ABG TCO2 17.9 MMOL/L (21.0-29.0)
[2021-12-04 20:01] LABS: ALLEN TEST POSITIVE
--- NOTE | 2021-12-04 20:13 | XRAY Report ---
PROCEDURE: Chest for Line Placement INDICATIONS: central line placement TECHNIQUE: One view of the chest was acquired. COMPARISON: 12/03/2021 FINDINGS: Surgical changes and devices: Defibrillator pad projects over the left upper chest. Right central bairon ous catheter has been placed with the distal tip projecting over the lower SVC. Lungs and pleura: Redemonstration of diffuse interstitial prominence with pulmonary vascular congesti on and loss of vascular distinctness. Hazy opacities of the bilateral costophrenic angles compatible with small pleural effusion. No pneumothorax. Mediastinum: Mediastinal contours appear stable. Heart size is markedly enlarged. Bones and chest wall: No suspicious bony lesions. Overlying soft tissues appear unremarkable. IMPRESSION: 1. Interval placement of right central venous catheter with distal tip projecting over the lower SVC. 2. Marked cardiomegaly with findings compatible with pulmonary edema. A concurrent infectious or infl ammatory process not excluded if clinically appropriate. No new focal airspace disease. Reviewed by: Eris Villa MD on 12/04/2021 8:12 PM PST Approved by: Eris Villa MD on 12/04/2021 8:12 PM PST Station ID: [id number]
[2021-12-04] MEDS ORDERED: SODIUM BICARBONATE ABBOJECT 50 MEQ/50 ML SYRINGE IVP ONE ×2 (20:16→23:50)
[2021-12-04] MEDS ORDERED: SODIUM CHLORIDE 0.9% 500 ML IV PRN (20:25)
[2021-12-04] MEDS: SODIUM CHLORIDE FLUSH 0.9% 10 ML SYRINGE IVP PRN ×2 (20:25→20:32)
[2021-12-04] MEDS ORDERED: SODIUM CHLORIDE FLUSH 0.9% 10 ML SYRINGE IVP PRN (20:25)
--- NOTE | 2021-12-04 20:41 | PROVIDER PROGRESS NOTE ---
Kineseologist Note - Kineseologist Note Kineseologist Note: I was asked to see patient whose blood pressures dropped to 79 systolic. During the daytime his meds are still being held, he is not getting IV fluids because of pulmonary edema and desaturations, and Midodrine 2.5 mg has been started 3 times daily with meals. He was also more confused today than at admission, trying to climb out of bed. His white blood count is low. Therefore concern for infection. and he was started on empric antibx using Cefriaxone and Zithromax for a possible pulmonary source. L.A. checked and it is normal at <1. ABG was done and very anbormal showing Metabolic Acidosis: pH 7.1, pCO2 53, pO2 70, sat 92%. CVP line placement was requested and done by Dr Ayala via R IJ. There is blood oozing under the bandage (because INR is >5). RN holding pressure over bandage. He had a limited bedside Echo done by this Hospitalist (I am Board certified in Cardiology) about 12 hours ago, and it showed LVEF 45-50%, mild , dilated RV with poor RV function, and a moderate loculated pericardial effusion seen mostly postero-laterally. This is similar to the report of Echo from Dr Bennett, given to our ED provider, which was done 1 month ago. Pt was examined: he is resting and in no distress. Chest: diminished breath sounds, Heart: syst murmur, Legs: 1+ edema. Imp: Metabolic acidosis probably from hypoperfusion, possibly from infection Hypotension/ Shock Worsened confusion Pericardial effusion, probably no tamponade because it is loculated Cor Pulmonale by Echo MAC slt worse, likely from hypoperfusion Anemia Elevated INR Plan: IV Levophed to increase organ perfusion, keep MAP > 65 mmHg 1 amp Bicarb Follow bicarb on BMP (which worsened from 19 at admission yesterday to 18 today) and pH by VBG Continue with plan for iv Albumen then iv Lasix for diuresis Continue to hold the Coreg, MANOJ-I, Hydralazine and Coumadin Check a.m. Cortisol re ?Addisonian crisis Burris for accurate I's and O's Transfuse blood if Hgb <8, given his critical condition and persistent anemia, recheck H/H tonite Awaiting stool guaic result CT head when BP improved, to R/O brain bleed, given elevated INR and worsened confusion All the above discussed with [employer] TIME SPENT: 45 min
[2021-12-04] MEDS ORDERED: LIDOCAINE 2% URO-JET 5 ML SYRINGE UR ONE (20:47)
[2021-12-04] MEDS ORDERED: ISOSORBIDE MONONITRATE ER 30 MG TABLET PO SCH (21:00)
[2021-12-04] MEDS: ATORVASTATIN 10 MG TABLET PO SCH (22:00)
[2021-12-04] MEDS: ISOSORBIDE MONONITRATE ER 30 MG TABLET PO SCH (22:19)
[2021-12-04] MEDS ORDERED: PHYTONADIONE 10 MG/ML AMP SUBQ STA (23:29)
[2021-12-04 23:34] LABS: HCT - HEMATOCRIT 26.3 % (42.0-52.0); HGB - HEMOGLOBIN 8.3 g/dL (14.0-18.0); VBG BASE EXCESS -10.8 mmol/L (-2 - +2); VBG HCO3 17.4 mmol/L (23-28); VBG OXYGEN SATURATION 86.3 % (60-80); VBG PCO2 50.3 mmHg (41-51); VBG PH 7.158 (7.31-7.41); VBG PO2 54.3 mmHg (25-47)
[2021-12-05] MEDS: SODIUM CHLORIDE FLUSH 0.9% 10 ML SYRINGE IVP PRN ×3 (00:05→06:01)
[2021-12-05 00:19] LABS: CALCIUM 8.8 mg/dL (8.5-10.3); CREATININE 5.2 mg/dL (0.6-1.2); POTASSIUM 5.6 mmol/L (3.5-5.0)
--- NOTE | 2021-12-05 01:40 | CT Report ---
PROCEDURE: Head W/O Stroke Protocol INDICATIONS: Worsening confusion, elevated INR TECHNIQUE: Noncontrast 4.5 mm thick angled axial sections acquired from the foramen magnum to the vertex, with c oronal reformats. For radiation dose reduction, the following was used: automated exposure control, adjustment of mA and/or kV according to patient size. COMPARISON: FINDINGS: Image quality: Excellent. CSF spaces: Basal cisterns are patent. No extra-axial fluid collections. Ventricles are normal in size and shape. Brain: No midline shift. No intracranial masses or hemorrhage. No mass effect. Gordon-white matter i nterface is normal. There cerebral volume loss for age with resultant ventricular and sulcal prominen ce. There are periventricular and deep white matter chronic small vessel ischemic changes. Atheroscle rotic calcifications are noted in the intracranial segments of the bilateral internal carotid arterie s. Skull and face: Calvarium and visualized facial bones are intact, without suspicious lesions. Sinuses: Scattered ethmoid sinus mucosal thickening. Remaining paranasal sinuses and mastoids are josie ar. IMPRESSION: CT head without acute intracranial abnormalities. No acute calvarial fractures. Age-related senescent changes and sequela of chronic small vessel ischemic disease. Scattered ethmoid sinus disease. Findings were discussed telephonically with Dr. Looney at 0137 hrs. This study fulfills neurological imaging criteria for inclusion or exclusion of acute stroke therapie s based on available published neurological imaging guidelines. Reviewed by: Eris Kruger MD on 12/05/2021 1:38 AM PST Approved by: Eris Kruger MD on 12/05/2021 1:38 AM PST Station ID: [id number]
[2021-12-05 02:33] LABS: VBG BASE EXCESS -10.8 mmol/L (-2 - +2); VBG HCO3 17.1 mmol/L (23-28); VBG OXYGEN SATURATION 88.8 % (60-80); VBG PCO2 47.6 mmHg (41-51); VBG PH 7.174 (7.31-7.41); VBG PO2 57.7 mmHg (25-47); VBG TOTAL CO2 18.6 mmol/L (24-29)
[2021-12-05] MEDS ORDERED: SODIUM BICARBONATE ABBOJECT 50 MEQ/50 ML SYRINGE IVP ONE (03:29)
[2021-12-05 05:27] LABS: BASOPHILS % (AUTO) 0.3 %; EOSINOPHILS # (AUTO) 0.4 10^3/uL (0.0-0.7); EOSINOPHILS % (AUTO) 6.6 %; HCT - HEMATOCRIT 25.2 % (42.0-52.0); HGB - HEMOGLOBIN 8.1 g/dL (14.0-18.0); LYMPHOCYTES # (AUTO) 0.9 10^3/uL (1.5-3.5); LYMPHOCYTES % (AUTO) 15.3 %; MEAN CORPUSCULAR HEMOGLOBIN 26.6 pg (27.0-31.0); MEAN CORPUSCULAR HGB CONC 32.1 g/dL (32.0-36.0); MEAN CORPUSCULAR VOLUME 82.6 fL (80.0-94.0); MEAN PLATELET VOLUME 10.1 fL (7.4-11.4); MONOCYTES # (AUTO) 0.6 10^3/uL (0.0-1.0); MONOCYTES % (AUTO) 10.2 %; NEUTROPHILS # (AUTO) 4.1 10^3/uL (1.5-6.6); NEUTROPHILS % (AUTO) 66.9 %; PLT - PLATELET COUNT 81 10^3/uL (130-450); RED BLOOD COUNT 3.05 10^6/uL (4.70-6.10); RED CELL DISTRIBUTION WIDTH 20.4 % (12.0-15.0); WHITE BLOOD COUNT 6.1 x10^3/uL (4.8-10.8)
[2021-12-05 05:35] LABS: PT - PROTHROMBIN TIME 62.2 secs (9.9-12.6)
[2021-12-05 05:50] LABS: SLIDE REVIEW? Indicated
[2021-12-05 05:53] LABS: MAGNESIUM 2.3 mg/dL (1.7-2.8); PHOSPHORUS 6.9 mg/dL (2.5-4.6)
[2021-12-05 05:56] LABS: ALBUMIN 3.4 g/dL (3.2-5.5); ALBUMIN/GLOBULIN RATIO 1.1 (1.0-2.2); BILIRUBIN,TOTAL 0.6 mg/dL (0.2-1.0); CALCIUM 8.8 mg/dL (8.5-10.3); POTASSIUM 5.2 mmol/L (3.5-5.0); TOTAL PROTEIN 6.5 g/dL (6.7-8.2)
[2021-12-05 05:57] LABS: CREATININE 5.2 mg/dL (0.6-1.2)
[2021-12-05] MEDS: LEVOTHYROXINE 100 MCG TABLET PO SCH (06:00)
[2021-12-05] MEDS: FUROSEMIDE 40 MG/4 ML VIAL IVP SCH ×2 (06:00→14:58)
[2021-12-05 06:02] LABS: INR 5.6 (0.8-1.2)
[2021-12-05 06:03] LABS: VBG BASE EXCESS -10.3 mmol/L (-2 - +2); VBG HCO3 17.5 mmol/L (23-28); VBG PCO2 47.5 mmHg (41-51); VBG PH 7.184 (7.31-7.41); VBG PO2 55.5 mmHg (25-47); VBG TOTAL CO2 18.9 mmol/L (24-29)
[2021-12-05 06:33] LABS: PLATELET ESTIMATE, MANUAL DECREASED (<130,000) (NORMAL)
[2021-12-05] MEDS ORDERED: PHYTONADIONE 10 MG/ML AMP SUBQ ONE (06:42)
[2021-12-05] MEDS ORDERED: SODIUM BICARBONATE 150 MEQ in DEXTROSE 5% 1,000 ML IV SCH (07:00)
--- NOTE | 2021-12-05 07:27 | PROVIDER PROGRESS NOTE ---
Assessment/Plan - Problem List (1) Acute kidney injury superimposed on CKD Assessment/Plan: Patient's renal function worsened overnight with creatinine of 5.2, BUN 146 and estimated GFR 11 Worsening renal function is Likely related to patient's heart failure and cardiac medications I have attempted to transfer the patient to another facility for higher level of care to include nephrology consult for possible dialysis. [facility] [place], [facility], [facility] in [place], [facility] and [facility]. This hospitals are at capacity/do not have any availability and are unable to accept the patient at this time. I have been advised to try again tomorrow. I was able to do a phone consult with a wood tool maker Dr. Irasema Mcguire at [facility] in [place]. She advised checking urine sodium, potassium, creatinine and osmolality. These have been ordered. He is on high-dose Lasix 80 mg IV twice daily in an attempt to improve his cardi ac function. I will discuss with the wood tool maker again in the morning regarding the patient's progress or lack there of. I have also made a call out to the patient's wood tool maker answering service. His wood tool maker is Dr. Danielle Lu with the [facility]. Still waiting on a call back.Will discuss with nephrology again in the morning. (2) Metabolic acidosis Assessment/Plan: Likely secondary to patient's worsening renal function. Patient's cardiac function is likely affecting renal perfusion and also resulting in some pulmonary edema/pulmonary vascular congestion which in turn is contributing to hypoxia. ABG done 12/04/21 night showed a pH 7.10, PCO2 53, PO2 71, HCO3 16.2. The patient was place on a bicarbonate drip. This was discontinued in the evening of 12/05/2021. Will recheck labs in the morning of 12/06/21 (3) Hypotension Assessment/Plan: Improved. Systolic blood pressure ihas mostly been in the low 100s Etiology likely multifactorial. Secondary to poor cardiac output from CHF, medications. Continue holding his medications which include Coreg, hydralazine and losartan were held Patient was given 250 mL of normal saline in the ED. Continue to avoid administering any additional IV fluids because patient's chest x-ray showed pulmonary edema.In an attempt to better diurese the patient due to CHF a central line was placed and the patient was started on Levophed drip. However the patient pulled the central line out in the night resulting in significant bleeding. Continue midodrine 2.5 mg 3 times daily with meals. (4) Elevated INR (international normalized ratio) Assessment/Plan: INR on 12/05/21 is supratherapeutic at 5.6. This was likely exacerbated by azithromycin. Continue to hold patient's Coumadin. Vitamin K 10 mg IV x1 administered. Patient has gross hematuria. Hemoglobin on 12/05/2021 evening was 7.9 with platelets of 66. Patient was transfused 1 unit of packed red blood cells and 1 unit of platelets. Monitor INR daily (5) Hematuria Assessment/Plan: This started after placement of Burris catheter. Was likely due to patient's supratherapeutic INR of 5.6. Patient was given 10 mg IV vitamin K. Will recheck INR in the morning. Recheck of patient's CBC showed a hemoglobin of 7.9 and platelet of 66. Given the gross hematuria and elevated INR patient is being transfused 1 unit of platelets and 1 unit of packed red blood cells. (6) Anemia Assessment/Plan: Hemoglobin this afternoon was 7.9. This was likely worsened by hematuria in a setting of supratherapeutic INR of 5.6. Patient was given 10 mg IV vitamin K. Will recheck INR in the morning. Recheck of patient's CBC on the evening of 12/05/21 showed a hemoglobin of 7.9 and platelet of 66. Given the gross hematuria and elevated INR patient is being transfused 1 unit of platelets and 1 unit of packed red blood cells. (7) Bradycardia Assessment/Plan: Heart rate has mostly been greater than 60. We will continue to hold the patient's beta-stephanie (8) Chronic systolic congestive heart failure, NYHA class 3 Assessment/Plan: Chest x-ray done on 12/04/21 showed vascular congestion indicative of mild pul monary edema Patient also had mild lower extremity edema. His oxygen requirement has increased from 2 L to 4L of oxygen via nasal cannula to maintain his oxygen saturation in the 90s this morning. His beta-stephanie currently on hold due to hypotension and bradycardia. Lasix 80 mg IV twice daily. (9) Aortic stenosis Assessment/Plan: Mild aortic stenosis per report of echocardiogram done 1 month ago. Patient to follow-up with his e tailer Dr. Bennett. (10) Chronic a-fib Assessment/Plan: Patient is normally on Coreg 6.25 mg p.o. twice daily. However this is currently on hold due to bradycardia. He also takes Coumadin. This is also currently on hold due to an INR of 5.6 today. (11) Hx of gout Assessment/Plan: On allopurinol 100 mg p.o. daily. (12) Hypothyroidism Assessment/Plan: On Synthroid 200 mcg daily AC. TSH was 6.46 with free T4 of 0.9 (13) Poor memory Assessment/Plan: Patient still appears somewhat confused. He has a significantly elevated BUN at 146. White blood cell count has normalized and temperature is normal he also has a significantly elevated BUN at 146. Will complete Rocephin and azithromycin on 12/06/2021. (14) Thrombocytopenia Assessment/Plan: Platelet count decreased from 89 yesterday to 66 today. Patient has gross hematuria. INR today is 5.6. Coumadin continues to be on hold. Patient given vitamin K 10 mg IV x1. Patient is being transfused 1 unit of platelets. (15) Obstructive sleep apnea on CPAP Assessment/Plan: Patient uses CPAP at night. Currently 4 L of oxygen is being bled through. (16) Hypoxia Assessment/Plan: Likely multifactorial. Secondary to obstructive sleep apnea, CHF and anemia. Patient will continue using CPAP at night. Patient is being diuresed. Patient will be transfused 1 unit of packed red blood cells. - Current Meds Current Meds: Current Medications Generic Name Dose Route Start Last Admin Trade Name Freq PRN Reason Stop Dose Admin Atorvastatin Calcium 10 mg 12/04/21 21:00 12/04/21 22:00 Atorvastatin 10 Mg Tablet PO 10 mg QPM EDA Administration Famotidine 20 mg 12/04/21 21:00 12/04/21 22:00 Famotidine 20 Mg Tablet PO 20 mg HS EDA Administration Furosemide 80 mg 12/05/21 06:00 12/05/21 06:00 Furosemide 40 Mg/4 Ml Vial IVP 80 mg BIDDIURETIC EDA Administration Norepinephrine Bitartrate 8 mg 250 mls @ 15 mls/hr 12/04/21 20:41 12/05/21 02:10 / Dextrose IV 0 mcg/min .[id number] EDA 0 mls/hr Titration Protocol 8 MCG/MIN Isosorbide Mononitrate 30 mg 12/04/21 21:00 12/04/21 22:19 Isosorbide Mononitrate Er 30 Mg Tablet PO 30 mg QPM EDA Administration Levothyroxine Sodium 200 mcg 12/05/21 07:00 12/05/21 06:00 Levothyroxine 100 Mcg Tablet PO 200 mcg QDAC EDA Administration Midodrine 2.5 mg 12/04/21 08:00 12/04/21 17:19 Midodrine 2.5 Mg Tablet PO 2.5 mg TIDWM EDA Administration Sodium Chloride 10 ml 12/04/21 01:00 12/04/21 22:53 Sodium Chloride Flush 0.9% 10 Ml Syringe IVP 10 ml 0100,0900,1700 EDA Administration Sodium Chloride 10 ml 12/03/21 20:11 12/05/21 06:01 Sodium Chloride Flush 0.9% 10 Ml Syringe IVP 10 ml PRN PRN Administration NEEDED PER PROVIDER ORDERS Sodium Chloride 20 ml 12/04/21 20:25 12/05/21 00:05 Sodium Chloride Flush 0.9% 10 Ml Syringe IVP 20 ml PRN PRN Administration After Blood Draw - Lab Result Fish Bone Diagrams: 12/05/21 17:40 12/05/21 17:40 - Additional Planning My Orders: My Active Orders 12/04/21 17:03 Acetaminophen [Tylenol] 650 mg PO Q4HR PRN 12/04/21 17:07 Ondansetron Inj [Zofran Inj] 4 mg IVP Q6HR PRN 12/04/21 19:13 RT - Obtain Arterial Specimen [RC] .ONCE 12/04/21 21:00 Atorvastatin [Lipitor] 10 mg PO QPM Famotidine [Pepcid] 20 mg PO HS Isosorbide Mononitrate ER [Imdur] 30 mg PO QPM 12/05/21 07:00 Levothyroxine [Synthroid] 200 mcg PO QDAC 12/05/21 08:00 Ferrous Sulfate [Feosol] 325 mg PO DAILYWM 12/05/21 09:00 Azithromycin Inj [Zithromax Inj] 500 mg Sodium Chloride 0.9% [Normal Saline 0.9%] 250 ml IV DAILY allopurinoL [Zyloprim] 100 mg PO DAILY cefTRIAXone [Rocephin] 1 gm Sodium Chloride 0.9% Minibag [Normal Saline 0.9% Minibag] 100 ml IV DAILY Subjective - Subjective Patient Reports: Other (Patient continues to be somewhat confused. He is oriented to place but not reason for presentation. However he recognizes his 's name, date of . Last night he pulled out his central line which resulted in a significant amount of bleeding. Currently has hematuria. Still mildly hypoxic) Objective Vital Signs: Vital Signs - 24 hr 12/04/21 12/04/21 12/04/21 09:00 11:05 12:03 Temperature 37.3 C Heart Rate [ 72 59 L 62 Monitoring electrodes] Respiratory 19 18 23 Rate Blood Pressure 86/74 L 104/60 107/66 [Left Brachial artery] O2 Saturation 93 94 94 12/04/21 12/04/21 12/04/21 13:00 14:00 15:00 Temperature Heart Rate [ 59 L 63 62 Monitoring electrodes] Respiratory 15 17 16 Rate Blood Pressure 85/56 L 103/64 101/61 [Left Brachial artery] O2 Saturation 90 L 94 94 12/04/21 12/04/21 12/04/21 16:09 16:22 17:00 Temperature 36.6 C 37.1 C Heart Rate [ 58 L 87 64 Monitoring electrodes] Respiratory 18 16 15 Rate Blood Pressure 89/68 L 143/84 H 96/62 [Left Brachial artery] O2 Saturation 94 100 92 12/04/21 12/04/21 12/04/21 18:00 19:00 20:00 Temperature Heart Rate [ 65 60 62 Monitoring electrodes] Respiratory 18 16 15 Rate Blood Pressure 105/60 79/60 L 102/61 [Left Brachial artery] O2 Saturation 94 89 L 96 12/04/21 12/04/21 12/04/21 20:47 20:50 20:55 Temperature Heart Rate [ 67 67 63 Monitoring electrodes] Respiratory 19 17 15 Rate Blood Pressure 127/70 131/78 H 131/77 H [Left Brachial artery] O2 Saturation 95 92 96 12/04/21 12/04/21 12/04/21 21:00 21:15 21:30 Temperature 36.5 C 36.4 C L Heart Rate [ 72 61 64 Monitoring electrodes] Respiratory 16 15 15 Rate Blood Pressure 120/68 129/67 128/83 H [Left Brachial artery] O2 Saturation 93 96 95 12/04/21 12/04/21 12/04/21 21:45 23:00 23:15 Temperature 36.3 C L Heart Rate [ 62 57 L 59 L Monitoring electrodes] Respiratory 14 16 15 Rate Blood Pressure 115/80 119/64 [Left Brachial artery] O2 Saturation 96 92 93 12/05/21 12/05/21 12/05/21 00:00 01:00 02:00 Temperature Heart Rate [ 67 63 58 L Monitoring electrodes] Respiratory 15 19 18 Rate Blood Pressure 143/83 H 163/94 H 164/82 H [Left Brachial artery] O2 Saturation 95 95 96 12/05/21 12/05/21 12/05/21 03:00 04:00 05:00 Temperature Heart Rate [ 62 60 71 Monitoring electrodes] Respiratory 16 14 16 Rate Blood Pressure 123/79 102/65 131/64 H [Left Brachial artery] O2 Saturation 94 91 L 94 12/05/21 12/05/21 06:00 07:00 Temperature Heart Rate [ 58 L 68 Monitoring electrodes] Respiratory 16 17 Rate Blood Pressure 121/74 113/88 H [Left Brachial artery] O2 Saturation 92 91 L Oxygen O2 Source Patient supplied BIPAP Oxygen Flow Rate 2 I&O (Last 24 Hrs): Intake and Output Totals x24h 12/03/21 12/04/21 12/05/21 23:59 23:59 23:59 Intake Total 100 1632.625 50.563 Output Total 0 775 810 Balance 100 857.625 -759.437 Comments/Notes: General: Other (Awake, alert, oriented to place but not reason) HEENT: PERRLA, EOMI Neck: Supple, No JVD Neuro: Alert, Disoriented Cardiovascular: Regular rate Respiratory: Chest non-tender, Other (Mild Crackles) Abdomen: Normal bowel sounds, Soft, No tenderness Extremities: No clubbing, No cyanosis, No edema. Hemosederin staining of lower extremities Skin: Significant bruising on right side of neck, right shoulder and antecubital regions of his arms. Burris catheter in place with gross hematuria. - Results Results: Laboratory Results WBC 6.1 x10^3/uL (4.8-10.8) 12/05/21 04:50 RBC 3.05 10^6/uL (4.70-6.10) L 12/05/21 04:50 Hgb 8.1 g/dL (14.0-18.0) L 12/05/21 04:50 Hct 25.2 % (42.0-52.0) L 12/05/21 04:50 MCV 82.6 fL (80.0-94.0) 12/05/21 04:50 MCH 26.6 pg (27.0-31.0) L 12/05/21 04:50 MCHC 32.1 g/dL (32.0-36.0) 12/05/21 04:50 RDW 20.4 % (12.0-15.0) H 12/05/21 04:50 Plt Count 81 10^3/uL (130-450) L 12/05/21 04:50 MPV 10.1 fL (7.4-11.4) 12/05/21 04:50 Neut # (Auto) 4.1 10^3/uL (1.5-6.6) 12/05/21 04:50 Lymph # (Auto) 0.9 10^3/uL (1.5-3.5) L 12/05/21 04:50 [place] # (Auto) 0.6 10^3/uL (0.0-1.0) 12/05/21 04:50 Eos # (Auto) 0.4 10^3/uL (0.0-0.7) 12/05/21 04:50 Baso # (Auto) 0.0 10^3/uL (0.0-0.1) 12/05/21 04:50 Absolute Nucleated RBC 0.00 x10^3/uL 12/05/21 04:50 Nucleated RBC % 0.0 /100WBC 12/05/21 04:50 Manual Slide Review Indicated 12/05/21 04:50 Platelet Estimate DECREASED (<130,000) (NORMAL) 12/05/21 04:50 Platelet Morphology NORMAL APPEARANCE (NORMAL) 12/03/21 17:56 RBC Morph Micro Appear 1+ ANISOCYTOSIS (NORMAL) 1+ HYPOCHROMASIA (NORMAL) 1+ OVALOCYTES (NORMAL) 12/05/21 04:50 RBC Morph Micro Appear 1+ ANISOCYTOSIS (NORMAL) 1+ HYPOCHROMASIA (NORMAL) 1+ OVALOCYTES (NORMAL) 12/05/21 04:50 RBC Morph Micro Appear 1+ ANISOCYTOSIS (NORMAL) 1+ HYPOCHROMASIA (NORMAL) 1+ OVALOCYTES (NORMAL) 12/05/21 04:50 PT 62.2 secs (9.9-12.6) H 12/05/21 04:50 INR 5.6 (0.8-1.2) H* 12/05/21 04:50 Bld Gas Analysis Time 195712/04/21 19:50 Sample Site RIGHT RADIAL 12/04/21 19:50 ABG pH 7.10 (7.35-7.45) L* 12/04/21 19:50 ABG pCO2 53 mmHg (34-45) H 12/04/21 19:50 ABG pO2 71 mmHg (80-100) L 12/04/21 19:50 ABG HCO3 16.2 mmol/L (22.0-26.0) L 12/04/21 19:50 ABG Total CO2 17.9 MMOL/L (21.0-29.0) L 12/04/21 19:50 ABG O2 Saturation 92 % (94-98) L 12/04/21 19:50 ABG Base Excess -12.8 mmol/L (-2.0-3.0) L 12/04/21 19:50 [place] Test POSITIVE 12/04/21 19:50 VBG pH 7.184 (7.31-7.41) L 12/05/21 04:50 VBG pCO2 47.5 mmHg (41-51) 12/05/21 04:50 VBG pO2 55.5 mmHg (25-47) H 12/05/21 04:50 VBG HCO3 17.5 mmol/L (23-28) L 12/05/21 04:50 VBG Total CO2 18.9 mmol/L (24-29) L 12/05/21 04:50 VBG O2 Saturation 88.0 % (60-80) H 12/05/21 04:50 VBG Base Excess -10.3 mmol/L (-2 - +2) L 12/05/21 04:50 O2 Delivery Device C-PAP 12/04/21 19:50 O2 Liters/Min 3.00 LPM 12/04/21 19:50 EPAP 5 cmH2O 12/04/21 19:50 IPAP 12 cmH2O 12/04/21 19:50 Sodium 137 mmol/L (135-145) 12/05/21 05:00 Potassium 5.2 mmol/L (3.5-5.0) H 12/05/21 05:00 Chloride 105 mmol/L (101-111) 12/05/21 05:00 Carbon Dioxide 19 mmol/L (21-32) L 12/05/21 05:00 Anion Gap 13.0 (6-13) 12/05/21 05:00 BUN 146 mg/dL (6-20) H* 12/05/21 05:00 Creatinine 5.2 mg/dL (0.6-1.2) H 12/05/21 05:00 Estimated GFR (MDRD) 11 (>89) L 12/05/21 05:00 Glucose 94 mg/dL (70-100) 12/05/21 05:00 Lactic Acid 0.6 mmol/L (0.5-2.2) 12/04/21 19:38 Calcium 8.8 mg/dL (8.5-10.3) 12/05/21 05:00 Phosphorus 6.9 mg/dL (2.5-4.6) H 12/05/21 04:30 Magnesium 2.3 mg/dL (1.7-2.8) 12/05/21 04:30 Iron 32 ug/dL (45-182) L 12/04/21 04:24 TIBC 279 ug/dL (250-450) 12/04/21 04:24 % Saturation 11 % (20-50) L 12/04/21 04:24 Transferrin 199 mg/dL (180-329) 12/04/21 04:24 Total Bilirubin 0.6 mg/dL (0.2-1.0) 12/05/21 05:00 AST 13 IU/L (10-42) 12/05/21 05:00 ALT 16 IU/L (10-60) 12/05/21 05:00 Alkaline Phosphatase 94 IU/L (42-121) 12/05/21 05:00 Troponin I High Sens 73.1 ng/L (2.3-19.7) H* 12/03/21 20:45 B-Natriuretic Peptide 522 pg/mL (5-100) H 12/05/21 04:50 Total Protein 6.5 g/dL (6.7-8.2) L 12/05/21 05:00 Albumin 3.4 g/dL (3.2-5.5) 12/05/21 05:00 Globulin 3.1 g/dL (2.1-4.2) 12/05/21 05:00 Albumin/Globulin Ratio 1.1 (1.0-2.2) 12/05/21 05:00 Vitamin B12 1456 pg/mL (180-914) H 12/04/21 04:24 Folate 17.37 ng/mL (5.90 - >24.8) 12/04/21 04:24 TSH 6.46 uIU/mL (0.34-5.60) H 12/03/21 17:56 Free T4 0.90 ng/dL (0.58-1.64) 12/04/21 04:24 Cortisol AM Sample 14.2 ug/dL 12/05/21 04:50 Urine Color DARK YELLOW 12/04/21 00:35 Urine Clarity SL. CLOUDY (CLEAR) 12/04/21 00:35 Urine pH 5.0 PH (5.0-7.5) 12/04/21 00:35 Ur Specific [place] 1.025 (1.002-1.030) 12/04/21 00:35 Urine Protein >=300 mg/dL (NEGATIVE) H 12/04/21 00:35 Urine Glucose (UA) NEGATIVE mg/dL (NEGATIVE) 12/04/21 00:35 Urine Ketones TRACE mg/dL (NEGATIVE) 12/04/21 00:35 Urine Occult Blood LARGE (NEGATIVE) H 12/04/21 00:35 Urine Nitrite NEGATIVE (NEGATIVE) 12/04/21 00:35 Urine Bilirubin NEGATIVE (NEGATIVE) 12/04/21 00:35 Urine Urobilinogen 0.2 (NORMAL) E.U./dL (NORMAL) 12/04/21 00:35 Ur Leukocyte Esterase TRACE (NEGATIVE) H 12/04/21 00:35 Urine RBC TNTC /HPF (0-5) H 12/04/21 00:35 Urine WBC 4-5 /HPF (0-3) 12/04/21 00:35 Ur Squamous Epith Cells FEW Squamous (<= Few) 12/04/21 00:35 Urine Bacteria Few /HPF (None Seen) 12/04/21 00:35 Urine Culture Comments INDICATED 12/04/21 00:35 Nasal Adenovirus (PCR) NOT DETECTED 12/03/21 20:10 Nasal B. parapertussis DNA (PCR) NOT DETECTED 12/03/21 20:10 Nasal Coronavir 229E PCR NOT DETECTED 12/03/21 20:10 Nasal Coronavir HKU1 PCR NOT DETECTED 12/03/21 20:10 Nasal Coronavir NL63 PCR NOT DETECTED 12/03/21 20:10 Nasal Coronavir OC43 PCR NOT DETECTED 12/03/21 20:10 Nasal Enterovir/Rhinovir PCR NOT DETECTED 12/03/21 20:10 Nasal Influenza B PCR NOT DETECTED 12/03/21 20:10 Nasal Influenza A PCR NOT DETECTED 12/03/21 20:10 Nasal Parainfluen 1 PCR NOT DETECTED 12/03/21 20:10 Nasal Parainfluen 2 PCR NOT DETECTED 12/03/21 20:10 Nasal Parainfluen 3 PCR NOT DETECTED 12/03/21 20:10 Nasal Parainfluen 4 PCR NOT DETECTED 12/03/21 20:10 Nasal RSV (PCR) NOT DETECTED 12/03/21 20:10 Nasal Screen MRSA (PCR) NEGATIVE (NEGATIVE) 12/03/21 22:05 Nasal B.pertussis DNA PCR NOT DETECTED 12/03/21 20:10 Nasal C.pneumoniae (PCR) NOT DETECTED 12/03/21 20:10 Bob Human Metapneumo PCR NOT DETECTED 12/03/21 20:10 Nasal M.pneumoniae (PCR) NOT DETECTED 12/03/21 20:10 Nasal SARS-CoV-2 (PCR) NOT DETECTED 12/03/21 20:10 ABX Reporting Has patient been on IV antibiotics over the past 48 hours?: Yes
[2021-12-05] MEDS: FERROUS SULFATE 325 MG TABLET PO SCH (07:54)
[2021-12-05] MEDS: MIDODRINE 2.5 MG TABLET PO SCH ×3 (07:54→17:07)
[2021-12-05] MEDS: allopurinoL 100 MG TABLET PO SCH (09:17)
[2021-12-05] MEDS: cefTRIAXone 1 GM in SODIUM CHLORIDE 0.9% MINIBAG 100 ML IV SCH (09:18)
[2021-12-05] MEDS: SODIUM CHLORIDE FLUSH 0.9% 10 ML SYRINGE IVP SCH ×3 (09:19→23:34)
[2021-12-05] MEDS: AZITHROMYCIN INJ 500 MG in SODIUM CHLORIDE 0.9% 250 ML IV SCH (09:19)
[2021-12-05] MEDS ORDERED: CALAMINE/ZINC OXIDE 177 ML BOTTLE TOP PRN (13:56)
[2021-12-05 16:17] LABS: CREATININE,URINE 55.7 mg/dL; POTASSIUM,URINE 24.4 mmol/L
[2021-12-05 17:45] LABS: BASOPHILS % (AUTO) 0.8 %; EOSINOPHILS # (AUTO) 0.4 10^3/uL (0.0-0.7); EOSINOPHILS % (AUTO) 8.5 %; HCT - HEMATOCRIT 24.7 % (42.0-52.0); HGB - HEMOGLOBIN 7.9 g/dL (14.0-18.0); LYMPHOCYTES # (AUTO) 0.7 10^3/uL (1.5-3.5); LYMPHOCYTES % (AUTO) 14.3 %; MEAN CORPUSCULAR HEMOGLOBIN 26.6 pg (27.0-31.0); MEAN CORPUSCULAR VOLUME 83.2 fL (80.0-94.0); MEAN PLATELET VOLUME 8.7 fL (7.4-11.4); MONOCYTES # (AUTO) 0.5 10^3/uL (0.0-1.0); MONOCYTES % (AUTO) 9.3 %; NEUTROPHILS # (AUTO) 3.3 10^3/uL (1.5-6.6); NEUTROPHILS % (AUTO) 66.3 %; PLT - PLATELET COUNT 66 10^3/uL (130-450); RED BLOOD COUNT 2.97 10^6/uL (4.70-6.10); RED CELL DISTRIBUTION WIDTH 20.5 % (12.0-15.0)
[2021-12-05 17:47] LABS: VBG BASE EXCESS -8.3 mmol/L (-2 - +2); VBG OXYGEN SATURATION 93.3 % (60-80); VBG PCO2 56.4 mmHg (41-51); VBG PH 7.168 (7.31-7.41); VBG PO2 69.1 mmHg (25-47); VBG TOTAL CO2 21.7 mmol/L (24-29)
[2021-12-05 18:14] LABS: CALCIUM 8.8 mg/dL (8.5-10.3); CREATININE 5.4 mg/dL (0.6-1.2); POTASSIUM 4.9 mmol/L (3.5-5.0)
[2021-12-05] MEDS: ISOSORBIDE MONONITRATE ER 30 MG TABLET PO SCH (21:02)
[2021-12-05] MEDS: ATORVASTATIN 10 MG TABLET PO SCH (21:05)
[2021-12-05] MEDS: FAMOTIDINE 20 MG TABLET PO SCH (21:05)
[2021-12-06 05:40] LABS: BASOPHILS % (AUTO) 0.6 %; EOSINOPHILS # (AUTO) 0.5 10^3/uL (0.0-0.7); EOSINOPHILS % (AUTO) 9.6 %; HCT - HEMATOCRIT 23.3 % (42.0-52.0); HGB - HEMOGLOBIN 7.7 g/dL (14.0-18.0); LYMPHOCYTES # (AUTO) 0.7 10^3/uL (1.5-3.5); LYMPHOCYTES % (AUTO) 13.3 %; MEAN CORPUSCULAR HEMOGLOBIN 27.1 pg (27.0-31.0); MEAN PLATELET VOLUME 9.7 fL (7.4-11.4); MONOCYTES # (AUTO) 0.5 10^3/uL (0.0-1.0); MONOCYTES % (AUTO) 10.5 %; NEUTROPHILS # (AUTO) 3.3 10^3/uL (1.5-6.6); PLT - PLATELET COUNT 97 10^3/uL (130-450); RED BLOOD COUNT 2.84 10^6/uL (4.70-6.10); RED CELL DISTRIBUTION WIDTH 19.8 % (12.0-15.0); WHITE BLOOD COUNT 5.1 x10^3/uL (4.8-10.8)
[2021-12-06 05:54] LABS: PT - PROTHROMBIN TIME 22.3 secs (9.9-12.6)
[2021-12-06 06:00] LABS: CALCIUM, IONIZED 1.17 mmol/L (1.15-1.33); VBG PH 7.228 (7.31-7.41)
[2021-12-06 06:18] LABS: ALBUMIN 3.3 g/dL (3.2-5.5); ALBUMIN/GLOBULIN RATIO 1.1 (1.0-2.2); BILIRUBIN,TOTAL 0.8 mg/dL (0.2-1.0); CALCIUM 8.9 mg/dL (8.5-10.3); CREATININE 5.4 mg/dL (0.6-1.2); MAGNESIUM 2.3 mg/dL (1.7-2.8); PHOSPHORUS 7.4 mg/dL (2.5-4.6); POTASSIUM 5.1 mmol/L (3.5-5.0); TOTAL PROTEIN 6.4 g/dL (6.7-8.2)
[2021-12-06] MEDS: LEVOTHYROXINE 100 MCG TABLET PO SCH (06:18)
--- NOTE | 2021-12-06 08:05 | PROVIDER PROGRESS NOTE ---
Assessment/Plan - Problem List (1) Acute kidney injury superimposed on CKD Assessment/Plan: 12/06/21 There was no significant change in patient's renal function today. Creatinine 5.4, BUN 140 and estimated GFR 10 Renal ultrasound done 12/06/2021 showed bilateral simple renal cyst. The largest on the left measuring 11.1 x 8 x 6 cm and 5.8 x 5.5 x 4.7 cm. There was no solid mass, hydronephrosis or nephrolithiasis seen. 12/05/21 Patient's renal function worsened overnight with creatinine of 5.2, BUN 146 and estimated GFR 11 Worsening renal function is Likely related to patient's heart failure and cardiac medications I have attempted to transfer the patient to another facility for higher level of care to include nephrology consult for possible dialysis. I have called [facility] in [place], [facility], [facility], [facility] and [facility]. This hospitals are at capacity/do not have any availability and are unable to accept the patient at this time. I have been advised to try again tomorrow. I was able to do a phone consult with a zinc furnace charger Dr. Irasema Mcguire at [facility] in [place]. She advised checking urine sodium, potassium, creatinine and osmolality. These have been ordered. He is on high-dose Lasix 80 mg IV twice daily in an attempt to improve his cardiac function. I will discuss with the zinc furnace charger again in the morning regarding the patient's progress or lack there of. I have also made a call out to the patient's zinc furnace charger answering service. His zinc furnace charger is Dr. Danielle Lu with the [facility]. Still waiting on a call back.Will discuss with nephrology again in the morning. (2) Metabolic acidosis Assessment/Plan: 12/06/21 Likely secondary to patient's worsening renal function and Uremia BUN:140 ABG done 12/06/2021 showed pH 7.21, PCO2 53, PO2 59, Bicarbonate 20.7. Patient was placed on BiPAP 14/6, respiratory rate 12, FiO2 40. Repeat ABG after 1 hour showed pH 7.21, PCO2 51,PO2 86, HCO3 19.7 A septic state was ruled out with a lactic acid of 0.6, WBC 5. Afebrile and SBP >100 12/05/21 Likely secondary to patient's worsening renal function. Patient's cardiac function is likely affecting renal perfusion and also resulting in some pulmonary edema/pulmonary vascular congestion which in turn is contributing to hypoxia. ABG done 12/04/21 night showed a pH 7.10, PCO2 53, PO2 71, HCO3 16.2. The patient was place on a bicarbonate drip. This was discontinued in the evening of 12/05/2021. Will recheck labs in the morning of 12/06/21 (3) Hypotension Assessment/Plan: 12/06/21 Improved. SBP >100 without pressure However , he was transfused 1 unit of PRBC for a hemoglobin of 7.7 12/05/21 Improved. Systolic blood pressure has mostly been in the low 100s Etiology likely multifactorial. Secondary to poor cardiac output from CHF, medications. Continue holding his medications which include Coreg, hydralazine and losartan were held Patient was given 250 mL of normal saline in the ED. Continue to avoid administering any additional IV fluids because patient's chest x-ray showed pulmonary edema.In an attempt to better diurese the patient due to CHF a central line was placed and the patient was started on Levophed drip. However the patient pulled the central line out in the night resulting in sign ificant bleeding. Continue midodrine 2.5 mg 3 times daily with meals. (4) Elevated INR (international normalized ratio) Assessment/Plan: 12/06/21 Improved INR was 2.0 12/05/21 INR on 12/05/21 is supratherapeutic at 5.6. This was likely exacerbated by azithromycin. Continue to hold patient's Coumadin. Vitamin K 10 mg IV x1 administered. Patient has gross hematuria. Hemoglobin on 12/05/2021 evening was 7.9 with platelets of 66. Patient was transfused 1 unit of packed red blood cells and 1 unit of platelets. Monitor INR daily (5) Hematuria Assessment/Plan: 12/06/21 Improved/Resolved 12/05/21 This started after placement of Burris catheter. Was likely due to patient's supratherapeutic INR of 5.6. Patient was given 10 mg IV vitamin K. Will recheck INR in the morning. Recheck of patient's CBC showed a hemoglobin of 7.9 and platelet of 66. Given the gross hematuria and elevated INR patient is being transfused 1 unit of platelets and 1 unit of packed red blood cells. (6) Anemia Assessment/Plan: 12/06/21 Hemoglobin this morning was 7.7 despite transfusion of 1 unit of packed red blood cell yesterday. Patient was transfused another unit of packed red blood cells. Repeat CBC sh owed hemoglobin of 8.1. 12/05/21 Hemoglobin this afternoon was 7.9. This was likely worsened by hematuria in a setting of supratherapeutic INR of 5.6. Patient was given 10 mg IV vitamin K. Will recheck INR in the morning. Recheck of patient's CBC on the evening of 12/05/21 showed a hemoglobin of 7.9 and platelet of 66. Given the gross hematuria and elevated INR patient is being transfused 1 unit of platelets and 1 unit of packed red blood cells. (7) Bradycardia Assessment/Plan: Resolved/Improved Heart rate was greater than 60 today. We will continue to hold the patient's beta-stephanie (8) Chronic systolic congestive heart failure, NYHA class 3 Assessment/Plan: Chest x-ray done on 12/04/21 showed vascular congestion indicative of mild pulmonary edema Patient also had mild lower extremity edema. His oxygen requirement has increased from 2 L to 4L of oxygen via nasal cannula to maintain his oxygen saturation in the 90s this morning. His beta-stephanie currently on hold due to hypotension and bradycardia. Lasix held today. Will obtain CXR on 12/07/21 am (9) Aortic stenosis Assessment/Plan: Mild aortic stenosis per report of echocardiogram done 1 month ago. Patient to follow-up with his die hardener Dr. Bennett. (10) Chronic a-fib Assessment/Plan: Patient is normally on Coreg 6.25 mg p.o. twice daily. However this is currently on hold due to bradycardia. He also takes Coumadin. This is also currently on hold due to an INR of 5.6 today. (11) Hx of gout Assessment/Plan: On allopurinol 100 mg p.o. daily. (12) Hypothyroidism Assessment/Plan: On Synthroid 200 mcg daily AC. TSH was 6.46 with free T4 of 0.9 (13) Poor memory Assessment/Plan: 12/06/21 Mental status was worse today. Patient was very lethargic and somnolent. CT of the brain without contrast was negative for any acute intracranial abnormality. ABG showed mild hypoxia and mild hypercapnia. Patient was placed on a BiPAP 12/05/21 Patient still appears somewhat confused. He has a significantly elevated BUN at 146. White blood cell count has normalized and temperature is normal he also has a significantly elevated BUN at 146. Will complete Rocephin and azithromycin on 12/06/2021. (14) Thrombocytopenia Assessment/Plan: 12/06/21 Improved after transfusion of 1 unit of packed red blood cells yesterday. Platelet count was 97 today. 12/05/21 Platelet count decreased from 89 yesterday to 66 today. Patient has gross hematuria. INR today is 5.6. Coumadin continues to be on hold. Patient given vitamin K 10 mg IV x1. Patient is being transfused 1 unit of platelets. (15) Obstructive sleep apnea on CPAP Assessment/Plan: Patient uses CPAP at night. Currently 4 L of oxygen is being bled through. (16) Hypoxia Assessment/Plan: 12/06/21 ABG done 12/06/2021 showed pH 7.21, PCO2 53, PO2 59, Bicarbonate 20.7. Patient was placed on BiPAP 14/6, respiratory rate 12, FiO2 40. Repeat ABG after 1 hour showed pH 7.21, PCO2 51,PO2 86, HCO3 19.7 We will maintain patient on the hospital BiPAP machine. Patient transfused another unit of packed red blood cells today. Lasix held today 12/05/21 Likely multifactorial. Secondary to obstructive sleep apnea, CHF and anemia. Patient will continue using CPAP at night. Patient is being diuresed. Patient will be transfused 1 unit of packed red blood cells. - Current Meds Current Meds: Current Medications Generic Name Dose Route Start Last Admin Trade Name Albert PRN Reason Stop Dose Admin Allopurinol 100 mg 12/05/21 09:00 12/05/21 09:17 Allopurinol 100 Mg Tablet PO 100 mg DAILY EDA Administration Atorvastatin Calcium 10 mg 12/04/21 21:00 12/05/21 21:05 Atorvastatin 10 Mg Tablet PO 10 mg QPM EDA Administration Famotidine 20 mg 12/04/21 21:00 12/05/21 21:05 Famotidine 20 Mg Tablet PO 20 mg HS EDA Administration Ferrous Sulfate 325 mg 12/05/21 08:00 12/05/21 07:54 Ferrous Sulfate 325 Mg Tablet PO 325 mg DAILYWM EDA Administration Azithromycin 500 mg/ Sodium 250 mls @ 250 mls/hr 12/05/21 09:00 12/05/21 10:36 Chloride IV 12/06/21 09:59 Infused DAILY EDA Infusion Ceftriaxone Sodium 1 gm/ 100 mls @ 200 mls/hr 12/05/21 09:00 12/05/21 09:50 Sodium Chloride IV 12/08/21 09:29 Infused DAILY EDA Infusion Norepinephrine Bitartrate 8 mg 250 mls @ 15 mls/hr 12/04/21 20:41 12/06/21 06:13 / Dextrose IV Not Given .[id number] EDA Protocol 8 MCG/MIN Isosorbide Mononitrate 30 mg 12/04/21 21:00 12/05/21 21:02 Isosorbide Mononitrate Er 30 Mg Tablet PO Not Given QPM EDA Levothyroxine Sodium 200 mcg 12/05/21 07:00 12/06/21 06:18 Levothyroxine 100 Mcg Tablet PO 200 mcg QDAC EDA Administration Midodrine 2.5 mg 12/04/21 08:00 12/05/21 17:07 Midodrine 2.5 Mg Tablet PO 2.5 mg TIDWM EDA Administration Sodium Chloride 10 ml 12/04/21 01:00 12/05/21 23:34 Sodium Chloride Flush 0.9% 10 Ml Syringe IVP 10 ml 0100,0900,1700 EDA Administration Sodium Chloride 10 ml 12/03/21 20:11 12/05/21 06:01 Sodium Chloride Flush 0.9% 10 Ml Syringe IVP 10 ml PRN PRN Administration NEEDED PER PROVIDER ORDERS Sodium Chloride 20 ml 12/04/21 20:25 12/05/21 00:05 Sodium Chloride Flush 0.9% 10 Ml Syringe IVP 20 ml PRN PRN Administration After Blood Draw - Lab Result Fish Bone Diagrams: 12/06/21 15:10 12/06/21 15:10 - Additional Planning My Orders: My Active Orders 12/05/21 08:00 Ferrous Sulfate [Feosol] 325 mg PO DAILYWM 12/05/21 09:00 Azithromycin Inj [Zithromax Inj] 500 mg Sodium Chloride 0.9% [Normal Saline 0.9%] 250 ml IV DAILY allopurinoL [Zyloprim] 100 mg PO DAILY cefTRIAXone [Rocephin] 1 gm Sodium Chloride 0.9% Minibag [Normal Saline 0.9% Minibag] 100 ml IV DAILY 12/05/21 10:35 OSMOLALITY URINE [REFLAB] Stat 12/05/21 18:14 Transfuse Platelet Pheresis Pk [RC] .ONCE Transfuse RBCs Leukoreduced [RC] .ONCE 12/06/21 00:00 Retroperitoneal Limited [US] Routine 12/06/21 07:59 Transfuse RBCs Leukoreduced [RC] .ONCE RBC, LEUKOREDUCED Stat TYPE AND SCREEN Stat 12/06/21 Lunch Cardiac Diet [DIET] Subjective - Subjective Patient Reports: Other (Patient was significantly somnolent today and very difficult to arouse.) Objective Vital Signs: Vital Signs - 24 hr 12/05/21 12/05/21 12/05/21 09:00 10:00 11:00 Temperature Heart Rate Heart Rate [ 66 65 58 L Monitoring electrodes] Respiratory 16 18 15 Rate Blood Pressure Blood Pressure 99/75 98/65 93/56 L [Left Brachial artery] O2 Saturation 92 94 92 12/05/21 12/05/21 12/05/21 12:00 13:00 14:00 Temperature 36.4 C L Heart Rate Heart Rate [ 52 L 60 56 L Monitoring electrodes] Respiratory 16 18 20 Rate Blood Pressure Blood Pressure 92/61 112/66 111/54 L [Left Brachial artery] O2 Saturation 90 L 92 92 12/05/21 12/05/21 12/05/21 15:00 16:00 17:00 Temperature 36.4 C L Heart Rate Heart Rate [ 60 63 53 L Monitoring electrodes] Respiratory 16 14 13 Rate Blood Pressure Blood Pressure 116/59 L 116/71 99/72 [Left Brachial artery] O2 Saturation 94 93 91 L 12/05/21 12/05/21 12/05/21 18:00 19:00 20:00 Temperature Heart Rate Heart Rate [ 55 L 58 L 45 L Monitoring electrodes] Respiratory 14 16 14 Rate Blood Pressure Blood Pressure 91/62 92/46 L 111/47 L [Left Brachial artery] O2 Saturation 94 91 L 94 12/05/21 12/05/21 12/05/21 20:20 20:45 21:16 Temperature 36.0 C L 36.1 C L Heart Rate 40 L 54 L Heart Rate [ 57 L Monitoring electrodes] Respiratory 13 15 20 Rate Blood Pressure 111/47 L 116/59 L Blood Pressure 125/69 [Left Brachial artery] O2 Saturation 93 12/05/21 12/05/21 12/05/21 22:00 23:00 23:19 Temperature 36.1 C L 36.1 C L Heart Rate 47 L 50 L Heart Rate [ 54 L 49 L Monitoring electrodes] Respiratory 14 14 14 Rate Blood Pressure 91/60 91/60 Blood Pressure 89/60 L 91/60 [Left Brachial artery] O2 Saturation 89 L 93 12/05/21 12/06/21 12/06/21 23:38 00:00 01:00 Temperature 36.1 C L 34.1 C L Heart Rate 66 Heart Rate [ 50 L 48 L Monitoring electrodes] Respiratory 20 15 15 Rate Blood Pressure 138/84 H Blood Pressure 96/68 89/52 L [Left Brachial artery] O2 Saturation 93 90 L 12/06/21 12/06/21 12/06/21 02:00 03:00 04:00 Temperature 35.1 C L 35.9 C L 36.6 C Heart Rate Heart Rate [ 68 53 L 68 Monitoring electrodes] Respiratory 16 16 17 Rate Blood Pressure Blood Pressure 113/65 113/74 114/72 [Left Brachial artery] O2 Saturation 94 96 94 12/06/21 12/06/21 12/06/21 05:00 06:00 06:58 Temperature 36.8 C 36.9 C Heart Rate Heart Rate [ 60 70 66 Monitoring electrodes] Respiratory 16 18 19 Rate Blood Pressure Blood Pressure 103/72 112/67 109/69 [Left Brachial artery] O2 Saturation 91 L 95 95 Oxygen O2 Source Patient supplied BIPAP Oxygen Flow Rate 2 I&O (Last 24 Hrs): Intake and Output Totals x24h 12/04/21 12/05/21 12/06/21 23:59 23:59 23:59 Intake Total 6706.191 7318.563 Output Total 775 1805 303 Balance 138.584 7412.563 -303 General: Other (Somnolent/Lethargic. Difficult to arouse.) HEENT: PERRLA, EOMI Neck: Supple, No JVD Neuro: Disoriented Cardiovascular: Regular rate, Normal S1, Normal S2 Respiratory: Chest non-tender, No respiratory distress, Other (Mild crackles) Abdomen: Normal bowel sounds, Soft, No tenderness Extremities: No clubbing, No edema, Other (Hemosederin staining of lower extremities) Comments/Notes: Significant bruising on right side of neck, right shoulder and antecubital regions of his arms. - Results Results: Laboratory Results WBC 5.1 x10^3/uL (4.8-10.8) 12/06/21 05:15 RBC 2.84 10^6/uL (4.70-6.10) L 12/06/21 05:15 Hgb 7.7 g/dL (14.0-18.0) L 12/06/21 05:15 Hct 23.3 % (42.0-52.0) L 12/06/21 05:15 MCV 82.0 fL (80.0-94.0) 12/06/21 05:15 MCH 27.1 pg (27.0-31.0) 12/06/21 05:15 MCHC 33.0 g/dL (32.0-36.0) 12/06/21 05:15 RDW 19.8 % (12.0-15.0) H 12/06/21 05:15 Plt Count 97 10^3/uL (130-450) L 12/06/21 05:15 MPV 9.7 fL (7.4-11.4) 12/06/21 05:15 Neut # (Auto) 3.3 10^3/uL (1.5-6.6) 12/06/21 05:15 Lymph # (Auto) 0.7 10^3/uL (1.5-3.5) L 12/06/21 05:15 Culberson # (Auto) 0.5 10^3/uL (0.0-1.0) 12/06/21 05:15 Eos # (Auto) 0.5 10^3/uL (0.0-0.7) 12/06/21 05:15 Baso # (Auto) 0.0 10^3/uL (0.0-0.1) 12/06/21 05:15 Absolute Nucleated RBC 0.00 x10^3/uL 12/06/21 05:15 Nucleated RBC % 0.0 /100WBC 12/06/21 05:15 Manual Slide Review Indicated 12/05/21 04:50 Platelet Estimate DECREASED (<130,000) (NORMAL) 12/05/21 04:50 Platelet Morphology NORMAL APPEARANCE (NORMAL) 12/03/21 17:56 RBC Morph Micro Appear 1+ ANISOCYTOSIS (NORMAL) 1+ HYPOCHROMASIA (NORMAL) 1+ OVALOCYTES (NORMAL) 12/05/21 04:50 RBC Morph Micro Appear 1+ ANISOCYTOSIS (NORMAL) 1+ HYPOCHROMASIA (NORMAL) 1+ OVALOCYTES (NORMAL) 12/05/21 04:50 RBC Morph Micro Appear 1+ ANISOCYTOSIS (NORMAL) 1+ HYPOCHROMASIA (NORMAL) 1+ OVALOCYTES (NORMAL) 12/05/21 04:50 PT 22.3 secs (9.9-12.6) H 12/06/21 05:15 INR 2.0 (0.8-1.2) H 12/06/21 05:15 Bld Gas Analysis Time 195712/04/21 19:50 Sample Site RIGHT RADIAL 12/04/21 19:50 ABG pH 7.10 (7.35-7.45) L* 12/04/21 19:50 ABG pCO2 53 mmHg (34-45) H 12/04/21 19:50 ABG pO2 71 mmHg (80-100) L 12/04/21 19:50 ABG HCO3 16.2 mmol/L (22.0-26.0) L 12/04/21 19:50 ABG Total CO2 17.9 MMOL/L (21.0-29.0) L 12/04/21 19:50 ABG O2 Saturation 92 % (94-98) L 12/04/21 19:50 ABG Base Excess -12.8 mmol/L (-2.0-3.0) L 12/04/21 19:50 Wilmar Test POSITIVE 12/04/21 19:50 VBG pH 7.228 (7.31-7.41) L 12/06/21 05:15 VBG pCO2 56.4 mmHg (41-51) H 12/05/21 17:40 VBG pO2 69.1 mmHg (25-47) H 12/05/21 17:40 VBG HCO3 20.0 mmol/L (23-28) L 12/05/21 17:40 VBG Total CO2 21.7 mmol/L (24-29) L 12/05/21 17:40 VBG O2 Saturation 93.3 % (60-80) H 12/05/21 17:40 VBG Base Excess -8.3 mmol/L (-2 - +2) L 12/05/21 17:40 Ionized Calcium 1.17 mmol/L (1.15-1.33) 12/06/21 05:15 O2 Delivery Device C-PAP 12/04/21 19:50 O2 Liters/Min 3.00 LPM 12/04/21 19:50 EPAP 5 cmH2O 12/04/21 19:50 IPAP 12 cmH2O 12/04/21 19:50 Sodium 139 mmol/L (135-145) 12/06/21 05:15 Potassium 5.1 mmol/L (3.5-5.0) H 12/06/21 05:15 Chloride 104 mmol/L (101-111) 12/06/21 05:15 Carbon Dioxide 21 mmol/L (21-32) 12/06/21 05:15 Anion Gap 14.0 (6-13) H 12/06/21 05:15 BUN 140 mg/dL (6-20) H* 12/06/21 05:15 Creatinine 5.4 mg/dL (0.6-1.2) H 12/06/21 05:15 Estimated GFR (MDRD) 10 (>89) L 12/06/21 05:15 Glucose 84 mg/dL (70-100) 12/06/21 05:15 Lactic Acid 0.6 mmol/L (0.5-2.2) 12/04/21 19:38 Calcium 8.9 mg/dL (8.5-10.3) 12/06/21 05:15 Phosphorus 7.4 mg/dL (2.5-4.6) H 12/06/21 05:15 Magnesium 2.3 mg/dL (1.7-2.8) 12/06/21 05:15 Iron 32 ug/dL (45-182) L 12/04/21 04:24 TIBC 279 ug/dL (250-450) 12/04/21 04:24 % Saturation 11 % (20-50) L 12/04/21 04:24 Transferrin 199 mg/dL (180-329) 12/04/21 04:24 Total Bilirubin 0.8 mg/dL (0.2-1.0) 12/06/21 05:15 AST 13 IU/L (10-42) 12/06/21 05:15 ALT 15 IU/L (10-60) 12/06/21 05:15 Alkaline Phosphatase 83 IU/L (42-121) 12/06/21 05:15 Troponin I High Sens 73.1 ng/L (2.3-19.7) H* 12/03/21 20:45 B-Natriuretic Peptide 584 pg/mL (5-100) H 12/06/21 05:15 Total Protein 6.4 g/dL (6.7-8.2) L 12/06/21 05:15 Albumin 3.3 g/dL (3.2-5.5) 12/06/21 05:15 Globulin 3.1 g/dL (2.1-4.2) 12/06/21 05:15 Albumin/Globulin Ratio 1.1 (1.0-2.2) 12/06/21 05:15 Vitamin B12 1456 pg/mL (180-914) H 12/04/21 04:24 Folate 17.37 ng/mL (5.90 - >24.8) 12/04/21 04:24 TSH 6.46 uIU/mL (0.34-5.60) H 12/03/21 17:56 Free T4 0.90 ng/dL (0.58-1.64) 12/04/21 04:24 Cortisol AM Sample 14.2 ug/dL 12/05/21 04:50 Urine Color DARK YELLOW 12/04/21 00:35 Urine Clarity SL. CLOUDY (CLEAR) 12/04/21 00:35 Urine pH 5.0 PH (5.0-7.5) 12/04/21 00:35 Ur Specific Munger 1.025 (1.002-1.030) 12/04/21 00:35 Urine Protein >=300 mg/dL (NEGATIVE) H 12/04/21 00:35 Urine Glucose (UA) NEGATIVE mg/dL (NEGATIVE) 12/04/21 00:35 Urine Ketones TRACE mg/dL (NEGATIVE) 12/04/21 00:35 Urine Occult Blood LARGE (NEGATIVE) H 12/04/21 00:35 Urine Nitrite NEGATIVE (NEGATIVE) 12/04/21 00:35 Urine Bilirubin NEGATIVE (NEGATIVE) 12/04/21 00:35 Urine Urobilinogen 0.2 (NORMAL) E.U./dL (NORMAL) 12/04/21 00:35 Ur Leukocyte Esterase TRACE (NEGATIVE) H 12/04/21 00:35 Urine RBC TNTC /HPF (0-5) H 12/04/21 00:35 Urine WBC 4-5 /HPF (0-3) 12/04/21 00:35 Ur Squamous Epith Cells FEW Squamous (<= Few) 12/04/21 00:35 Urine Bacteria Few /HPF (None Seen) 12/04/21 00:35 Urine Culture Comments INDICATED 12/04/21 00:35 Urine Creatinine 55.7 mg/dL 12/05/21 10:35 Urine Sodium 69.0 mmol/L 12/05/21 10:35 Urine Potassium 24.4 mmol/L 12/05/21 10:35 Nasal Adenovirus (PCR) NOT DETECTED 12/03/21 20:10 Nasal B. parapertussis DNA (PCR) NOT DETECTED 12/03/21 20:10 Nasal Coronavir 229E PCR NOT DETECTED 12/03/21 20:10 Nasal Coronavir HKU1 PCR NOT DETECTED 12/03/21 20:10 Nasal Coronavir NL63 PCR NOT DETECTED 12/03/21 20:10 Nasal Coronavir OC43 PCR NOT DETECTED 12/03/21 20:10 Nasal Enterovir/Rhinovir PCR NOT DETECTED 12/03/21 20:10 Nasal Influenza B PCR NOT DETECTED 12/03/21 20:10 Nasal Influenza A PCR NOT DETECTED 12/03/21 20:10 Nasal Parainfluen 1 PCR NOT DETECTED 12/03/21 20:10 Nasal Parainfluen 2 PCR NOT DETECTED 12/03/21 20:10 Nasal Parainfluen 3 PCR NOT DETECTED 12/03/21 20:10 Nasal Parainfluen 4 PCR NOT DETECTED 12/03/21 20:10 Nasal RSV (PCR) NOT DETECTED 12/03/21 20:10 Nasal Screen MRSA (PCR) NEGATIVE (NEGATIVE) 12/03/21 22:05 Nasal B.pertussis DNA PCR NOT DETECTED 12/03/21 20:10 Nasal C.pneumoniae (PCR) NOT DETECTED 12/03/21 20:10 Bob Human Metapneumo PCR NOT DETECTED 12/03/21 20:10 Nasal M.pneumoniae (PCR) NOT DETECTED 12/03/21 20:10 Nasal SARS-CoV-2 (PCR) NOT DETECTED 12/03/21 20:10 Blood Type O POSITIVE 12/05/21 18:27 Blood Type Recheck O POSITIVE 12/05/21 17:40 Antibody Screen NEGATIVE 12/05/21 18:27 Crossmatch IS Only See Detail 12/05/21 18:27
[2021-12-06] MEDS: cefTRIAXone 1 GM in SODIUM CHLORIDE 0.9% MINIBAG 100 ML IV SCH (10:00)
[2021-12-06] MEDS: SODIUM CHLORIDE FLUSH 0.9% 10 ML SYRINGE IVP SCH ×2 (10:00→20:29)
[2021-12-06] MEDS: MIDODRINE 2.5 MG TABLET PO SCH ×3 (10:00→19:45)
[2021-12-06] MEDS: allopurinoL 100 MG TABLET PO SCH (10:00)
[2021-12-06] MEDS: FERROUS SULFATE 325 MG TABLET PO SCH (10:00)
[2021-12-06] MEDS: AZITHROMYCIN INJ 500 MG in SODIUM CHLORIDE 0.9% 250 ML IV SCH (10:30)
--- NOTE | 2021-12-06 11:15 | PHARMACY PROGRESS NOTE ---
- Best Possible Medication History Admit Date and Time: 12/03/212010 Processed by: Pharmacy Medication History completed: Yes Patient Interview: Pt unable to participate Secondary Source(s): Written medication list, Physician records, Pharmacy rec ords, Insurance records As the person ultimately responsible for medication therapy, providers are able to order a medication from an existing home medication list in [facility] via the "Reconcile Routine" prior to Confirmation of that medication by work station support specialist. Such practice is discouraged except when the physician, in their clinical judgment, deems that a medical need exists for a medication without regard to previous use.
--- NOTE | 2021-12-06 11:27 | Ultrasound Report ---
PROCEDURE: Retroperitoneal INDICATIONS: acute on chronic renal failure TECHNIQUE: Real-time scanning was performed of the retroperitoneal organs, with image documentation. COMPARISON: None. FINDINGS: Kidneys: Kidneys are normal in size. Right kidney measures 10.9 cm long; left kidney measures 10.6 cm long. Right renal cortical thickness is 1.4 cm; left renal cortical thickness is 1.7 cm. No clifford d masses, hydronephrosis, or nephrolithiasis. Bilateral renal cysts are present the largest on the r ight in the superior pole measuring 3.7 x 3.7 x 3.0 cm and 4.1 x 3.1 x 2.9 cm. The largest on the lef t measuring 11.1 x 8.0 x 6.3 cm and 5.8 x 5.5 x 4.7 cm. Bladder: The bladder is collapsed with a Burris catheter. Ureteral jets are not visualized. IMPRESSION: Bilateral simple renal cysts. No obstruction. Reviewed by: Katie Pereyra MD on 12/06/2021 11:26 AM [facility] Approved by: Katie Pereyra MD on 12/06/2021 11:26 AM PST Station ID: [id number]
[2021-12-06 14:09] LABS: ABG HCO3 20.7 mmol/L (22.0-26.0); ABG OXYGEN SATURATION 89 % (94-98); ABG PCO2 53 mmHg (34-45); ABG PH 7.21 (7.35-7.45); ABG PO2 59 mmHg (80-100); ABG TCO2 22.3 MMOL/L (21.0-29.0)
[2021-12-06 15:20] LABS: BASOPHILS % (AUTO) 0.4 %; EOSINOPHILS # (AUTO) 0.4 10^3/uL (0.0-0.7); EOSINOPHILS % (AUTO) 7.2 %; HCT - HEMATOCRIT 25.5 % (42.0-52.0); HGB - HEMOGLOBIN 8.1 g/dL (14.0-18.0); LYMPHOCYTES # (AUTO) 0.6 10^3/uL (1.5-3.5); LYMPHOCYTES % (AUTO) 12.3 %; MEAN CORPUSCULAR HEMOGLOBIN 26.5 pg (27.0-31.0); MEAN CORPUSCULAR HGB CONC 31.8 g/dL (32.0-36.0); MEAN CORPUSCULAR VOLUME 83.3 fL (80.0-94.0); MEAN PLATELET VOLUME 9.7 fL (7.4-11.4); MONOCYTES # (AUTO) 0.5 10^3/uL (0.0-1.0); MONOCYTES % (AUTO) 10.1 %; NEUTROPHILS # (AUTO) 3.5 10^3/uL (1.5-6.6); NEUTROPHILS % (AUTO) 69.2 %; NRBC ABSOLUTE COUNT (AUTO) 0.02 x10^3/uL; NUCLEATED RED BLOOD CELLS AUTO 0.4 /100WBC; PLT - PLATELET COUNT 92 10^3/uL (130-450); RED BLOOD COUNT 3.06 10^6/uL (4.70-6.10); RED CELL DISTRIBUTION WIDTH 19.7 % (12.0-15.0)
[2021-12-06 16:00] LABS: ABG BASE EXCESS -7.9 mmol/L (-2.0-3.0); ABG HCO3 19.7 mmol/L (22.0-26.0); ABG PCO2 51 mmHg (34-45); ABG PH 7.21 (7.35-7.45); ABG PO2 86 mmHg (80-100); ABG TCO2 21.3 MMOL/L (21.0-29.0)
[2021-12-06 16:01] LABS: ABG MODE OF VENTILATION SYNCHRONOUS/TIMES; ABG OXYGEN SATURATION 95 % (94-98); ABG RESPIRATORY RATE 12 b/min; ALLEN TEST POSITIVE
[2021-12-06 16:03] LABS: CALCIUM 8.5 mg/dL (8.5-10.3); CREATININE 5.6 mg/dL (0.6-1.2); POTASSIUM 5.2 mmol/L (3.5-5.0)
--- NOTE | 2021-12-06 17:06 | CT Report ---
PROCEDURE: HEAD WO INDICATIONS: altered mental status. TECHNIQUE: Noncontrast 4.5 mm thick angled axial sections acquired from the foramen magnum to the vertex. For r adiation dose reduction, the following was used: automated exposure control, adjustment of mA and/or kV according to patient size. COMPARISON: Head CT without, 12/05/2021. FINDINGS: Image quality: Excellent. CSF spaces: Basal cisterns are patent. No extra-axial fluid collections. Ventricles are normal in size and shape. Brain: No midline shift. No intracranial masses or hemorrhage. There is cerebral volume loss. Moder ate periventricular white matter chronic small vessel ischemic changes are present Skull and face: Calvarium and visualized facial bones are intact, without suspicious lesions. Sinuses: Mild ethmoidal sinus mucosal thickening. Mastoids are clear. IMPRESSION: 1. No acute intracranial abnormalities. Reviewed by: Ivonne Smith MD on 12/06/2021 5:05 PM PST Approved by: Ivonne Smith MD on 12/06/2021 5:05 PM PST Station ID: [id number]
[2021-12-06] MEDS: ATORVASTATIN 10 MG TABLET PO SCH (20:29)
[2021-12-06] MEDS: FAMOTIDINE 20 MG TABLET PO SCH (20:30)
[2021-12-06] MEDS: ISOSORBIDE MONONITRATE ER 30 MG TABLET PO SCH (20:30)
[2021-12-07] MEDS: SODIUM CHLORIDE FLUSH 0.9% 10 ML SYRINGE IVP SCH ×3 (02:41→18:42)
[2021-12-07 06:10] LABS: BASOPHILS % (AUTO) 0.5 %; EOSINOPHILS # (AUTO) 0.5 10^3/uL (0.0-0.7); EOSINOPHILS % (AUTO) 7.7 %; HCT - HEMATOCRIT 28.3 % (42.0-52.0); LYMPHOCYTES % (AUTO) 16.8 %; MEAN CORPUSCULAR HEMOGLOBIN 26.7 pg (27.0-31.0); MEAN CORPUSCULAR HGB CONC 31.8 g/dL (32.0-36.0); MEAN PLATELET VOLUME 10.2 fL (7.4-11.4); MONOCYTES # (AUTO) 0.6 10^3/uL (0.0-1.0); MONOCYTES % (AUTO) 9.9 %; NEUTROPHILS # (AUTO) 3.9 10^3/uL (1.5-6.6); NEUTROPHILS % (AUTO) 64.3 %; PLT - PLATELET COUNT 104 10^3/uL (130-450); RED BLOOD COUNT 3.37 10^6/uL (4.70-6.10); RED CELL DISTRIBUTION WIDTH 19.9 % (12.0-15.0); WHITE BLOOD COUNT 6.1 x10^3/uL (4.8-10.8)
[2021-12-07 06:19] LABS: INR 1.4 (0.8-1.2); PT - PROTHROMBIN TIME 15.6 secs (9.9-12.6)
[2021-12-07] MEDS: LEVOTHYROXINE 100 MCG TABLET PO SCH (06:34)
[2021-12-07 07:24] LABS: CALCIUM, IONIZED 1.18 mmol/L (1.15-1.33); VBG PH 7.183 (7.31-7.41)
[2021-12-07 07:43] LABS: ALBUMIN/GLOBULIN RATIO 0.9 (1.0-2.2)
[2021-12-07 07:44] LABS: ALBUMIN 3.4 g/dL (3.2-5.5); BILIRUBIN,TOTAL 1.4 mg/dL (0.2-1.0); CALCIUM 9.1 mg/dL (8.5-10.3); CREATININE 5.8 mg/dL (0.6-1.2)
[2021-12-07 08:14] LABS: BASOPHILS % (AUTO) 0.7 %; EOSINOPHILS # (AUTO) 0.4 10^3/uL (0.0-0.7); EOSINOPHILS % (AUTO) 6.8 %; HCT - HEMATOCRIT 27.3 % (42.0-52.0); LYMPHOCYTES # (AUTO) 0.7 10^3/uL (1.5-3.5); LYMPHOCYTES % (AUTO) 12.8 %; MEAN CORPUSCULAR HEMOGLOBIN 27.3 pg (27.0-31.0); MEAN CORPUSCULAR VOLUME 82.7 fL (80.0-94.0); MEAN PLATELET VOLUME 10.8 fL (7.4-11.4); MONOCYTES # (AUTO) 0.6 10^3/uL (0.0-1.0); MONOCYTES % (AUTO) 11.2 %; NEUTROPHILS # (AUTO) 3.8 10^3/uL (1.5-6.6); NEUTROPHILS % (AUTO) 67.8 %; PLT - PLATELET COUNT 100 10^3/uL (130-450); RED CELL DISTRIBUTION WIDTH 19.7 % (12.0-15.0); WHITE BLOOD COUNT 5.6 x10^3/uL (4.8-10.8)
[2021-12-07 08:19] LABS: MAGNESIUM 2.2 mg/dL (1.7-2.8); PHOSPHORUS 7.9 mg/dL (2.5-4.6)
--- NOTE | 2021-12-07 08:50 | PROVIDER PROGRESS NOTE ---
Subjective - Prog Note Date Prog Note Date: 12/07/21 - Subjective Subjective: He still feels short of breath at times. Denies any chest pain or abdominal pain. He knows he is in the hospital but not which one. Current Medications - Current Medications Current Medications: Active Medications Acetaminophen (Acetaminophen 325 Mg Tablet) 650 mg PO Q4HR PRN PRN Reason: Pain or Fever > 38C (100.4F) Allopurinol (Allopurinol 100 Mg Tablet) 100 mg PO DAILY [facility] Last Admin: 12/07/21 09:44 Dose: 100 mg Atorvastatin Calcium (Atorvastatin 10 Mg Tablet) 10 mg PO QPM [facility] Last Admin: 12/06/21 20:29 Dose: Not Given Calamine (Calamine/Zinc Oxide 177 Ml Bottle) 1 applic TOP PRN PRN PRN Reason: SKIN CARE Famotidine (Famotidine 20 Mg Tablet) 20 mg PO HS [facility] Last Admin: 12/06/21 20:30 Dose: Not Given Ferrous Sulfate (Ferrous Sulfate 325 Mg Tablet) 325 mg PO DAILYWM [facility] Last Admin: 12/07/21 09:44 Dose: 325 mg Ceftriaxone Sodium 1 gm/ (Sodium Chloride) 100 mls @ 200 mls/hr IV DAILY [facility] Stop: 12/08/21 09:29 Last Admin: 12/07/21 09:39 Dose: 200 mls/hr Sodium Chloride (Normal Saline 0.9%) 500 mls @ 20 mls/hr IV Q24H PRN PRN Reason: TKO RATE Isosorbide Mononitrate (Isosorbide Mononitrate Er 30 Mg Tablet) 30 mg PO QPM [facility] Last Admin: 12/06/21 20:30 Dose: Not Given Levothyroxine Sodium (Levothyroxine 100 Mcg Tablet) 200 mcg PO QDAC [facility] Last Admin: 12/07/21 06:34 Dose: 200 mcg Ondansetron HCl (Ondansetron 4 Mg/2 Ml Vial) 4 mg IVP Q6HR PRN PRN Reason: Nausea / Vomiting Sodium Chloride (Sodium Chloride Flush 0.9% 10 Ml Syringe) 10 ml IVP 0100,0900 ,1700 [facility] Last Admin: 12/07/21 09:44 Dose: 10 ml Sodium Chloride (Sodium Chloride Flush 0.9% 10 Ml Syringe) 10 ml IVP PRN PRN PRN Reason: NEEDED PER PROVIDER ORDERS Last Admin: 12/05/21 06:01 Dose: 10 ml Sodium Chloride (Sodium Chloride Flush 0.9% 10 Ml Syringe) 20 ml IVP PRN PRN PRN Reason: After Blood Draw Last Admin: 12/05/21 00:05 Dose: 20 ml Atorvastatin [Lipitor] 10 mg PO QPM 12/03/21 Carvedilol [Coreg] 6.25 mg PO BID 12/03/21 Torsemide 20 mg PO DAILY 12/03/21 allopurinoL [Zyloprim] 100 mg PO DAILY 12/03/21 Hydralazine HCl 50 mg PO TID 12/04/21 Isosorbide Mononitrate [Isosorbide Mononitrate ER] 30 mg PO QPM 12/04/21 Levothyroxine Sodium [Synthroid] 200 mcg PO SUTUWEFRSA@0712/04/21 Losartan Potassium 25 mg PO QPM 12/04/21 Sodium Bicarbonate 650 mg PO BID 12/04/21 Warfarin [Coumadin] 1 mg PO MO@209912/04/21 Warfarin [Coumadin] 2.5 mg PO SUTUWETHFRSA@209912/04/21 Cholecalciferol [Vitamin D3] 25 mcg PO DAILY 12/06/21 Ferrous Sulfate 325 mg PO DAILYWM 12/06/21 Levothyroxine Sodium [Synthroid] 250 mcg PO MOTH@0700 12/06/21 Multivitamin [Theragran] 1 tab PO DAILY 12/06/21 Vit A/Vit C/Vit E/Zinc/Copper [Preservision Areds Softgel] 1 cap PO QPM 12/06/21 Objective - Vital Signs/Intake & Output Reviewed Vital Signs: Yes Vital Signs: Vital Signs Temp Pulse Resp BP Pulse Ox 12/07/21 08:00 36.2 C L 74 18 151/98 H 95 12/07/21 06:56 73 16 144/94 H 95 12/07/21 06:00 77 18 130/77 90 L 12/07/21 05:00 89 21 145/99 H 94 Intake & Output: Intake & Output 12/04/21 12/05/21 12/06/21 12/07/21 23:59 23:59 23:59 23:59 Intake Total 9353.241 6778.563 725 Output Total 775 1805 1288 875 Balance 451.260 9178.563 -563 -875 - Objective General Appearance: positive: No acute distress, Alert Eyes Bilateral: positive: Normal inspection, Conjunctivae nml ENT: positive: ENT inspection nml, Other (BiPAP mask in place.) Neck: positive: Nml inspection Respiratory: positive: No respiratory distress, Rales. negative: Wheezes, Rhonchi Cardiovascular: positive: Irregularly irregular. negative: Tachycardia, Systolic murmur Abdomen: positive: Non-tender, No distention. negative: Tenderness Skin: positive: Warm, Dry, Other (Chronic venous stasis changes over bilateral lower extremities.) Extremities: positive: No pedal edema Neurologic/Psychiatric: positive: Disoriented to place (He is oriented to the fact that he is in a hospital but does not know which one), Other (No focal deficits. His speech is delayed as well as his thought process.). negative: Disoriented to person - Lab Results Fish Bones: 12/07/21 07:56 12/07/21 05:55 Other Labs: Lab Results x24hrs 12/07/21 12/07/21 12/07/21 Range/Units 07:56 07:56 05:55 WBC 5.6 (4.8-10.8) x10^3/uL RBC 3.30 L (4.70-6.10) 10^6/uL Hgb 9.0 L (14.0-18.0) g/dL Hct 27.3 L (42.0-52.0) % MCV 82.7 (80.0-94.0) fL MCH 27.3 (27.0-31.0) pg MCHC 33.0 (32.0-36.0) g/dL RDW 19.7 H (12.0-15.0) % Plt Count 100 L (130-450) 10^3/uL MPV 10.8 (7.4-11.4) fL Neut # (Auto) 3.8 (1.5-6.6) 10^3/uL Lymph # (Auto) 0.7 L (1.5-3.5) 10^3/uL Real # (Auto) 0.6 (0.0-1.0) 10^3/uL Eos # (Auto) 0.4 (0.0-0.7) 10^3/uL Baso # (Auto) 0.0 (0.0-0.1) 10^3/uL Absolute Nucleated RBC 0.00 x10^3/uL Nucleated RBC % 0.0 /100WBC PT (9.9-12.6) secs INR (0.8-1.2) Bld Gas Analysis Time Sample Site ABG pH (7.35-7.45) ABG pCO2 (34-45) mmHg ABG pO2 (80-100) mmHg ABG HCO3 (22.0-26.0) mmol/L ABG Total CO2 (21.0-29.0) MMOL/L ABG O2 Saturation (94-98) % ABG Base Excess (-2.0-3.0) mmol/L [place] Test VBG pH 7.183 L (7.31-7.41) Ionized Calcium 1.18 (1.15-1.33) mmol/L Respiration Rate b/min O2 Delivery Device O2 Liters/Min LPM Vent Mode FiO2 EPAP cmH2O IPAP cmH2O Sodium (135-145) mmol/L Potassium (3.5-5.0) mmol/L Chloride (101-111) mmol/L Carbon Dioxide (21-32) mmol/L Anion Gap (6-13) BUN (6-20) mg/dL Creatinine (0.6-1.2) mg/dL Estimated GFR (MDRD) (>89) Glucose (70-100) mg/dL Lactic Acid (0.5-2.2) mmol/L Calcium (8.5-10.3) mg/dL Phosphorus 7.9 H (2.5-4.6) mg/dL Magnesium 2.2 (1.7-2.8) mg/dL Total Bilirubin (0.2-1.0) mg/dL AST (10-42) IU/L ALT (10-60) IU/L Alkaline Phosphatase (42-121) IU/L B-Natriuretic Peptide (5-100) pg/mL Total Protein (6.7-8.2) g/dL Albumin (3.2-5.5) g/dL Globulin (2.1-4.2) g/dL Albumin/Globulin Ratio (1.0-2.2) Blood Type Antibody Screen Crossmatch IS Only 12/07/21 12/07/21 12/07/21 Range/Units 05:55 05:46 05:46 WBC (4.8-10.8) x10^3/uL RBC (4.70-6.10) 10^6/uL Hgb (14.0-18.0) g/dL Hct (42.0-52.0) % MCV (80.0-94.0) fL MCH (27.0-31.0) pg MCHC (32.0-36.0) g/dL RDW (12.0-15.0) % Plt Count (130-450) 10^3/uL MPV (7.4-11.4) fL Neut # (Auto) (1.5-6.6) 10^3/uL Lymph # (Auto) (1.5-3.5) 10^3/uL Real # (Auto) (0.0-1.0) 10^3/uL Eos # (Auto) (0.0-0.7) 10^3/uL Baso # (Auto) (0.0-0.1) 10^3/uL Absolute Nucleated RBC x10^3/uL Nucleated RBC % /100WBC PT 15.6 H (9.9-12.6) secs INR 1.4 H (0.8-1.2) Bld Gas Analysis Time Sample Site ABG pH (7.35-7.45) ABG pCO2 (34-45) mmHg ABG pO2 (80-100) mmHg ABG HCO3 (22.0-26.0) mmol/L ABG Total CO2 (21.0-29.0) MMOL/L ABG O2 Saturation (94-98) % ABG Base Excess (-2.0-3.0) mmol/L Wilmar Test VBG pH (7.31-7.41) Ionized Calcium (1.15-1.33) mmol/L Respiration Rate b/min O2 Delivery Device O2 Liters/Min LPM Vent Mode FiO2 EPAP cmH2O IPAP cmH2O Sodium 142 (135-145) mmol/L Potassium 5.0 (3.5-5.0) mmol/L Chloride 106 (101-111) mmol/L Carbon Dioxide 20 L (21-32) mmol/L Anion Gap 16.0 H (6-13) BUN 143 H* (6-20) mg/dL Creatinine 5.8 H (0.6-1.2) mg/dL Estimated GFR (MDRD) 9 L (>89) Glucose 87 (70-100) mg/dL Lactic Acid (0.5-2.2) mmol/L Calcium 9.1 (8.5-10.3) mg/dL Phosphorus (2.5-4.6) mg/dL Magnesium (1.7-2.8) mg/dL Total Bilirubin 1.4 H (0.2-1.0) mg/dL AST 17 (10-42) IU/L ALT 15 (10-60) IU/L Alkaline Phosphatase 91 (42-121) IU/L B-Natriuretic Peptide 510 H (5-100) pg/mL Total Protein 7.0 (6.7-8.2) g/dL Albumin 3.4 (3.2-5.5) g/dL Globulin 3.6 (2.1-4.2) g/dL Albumin/Globulin Ratio 0.9 L (1.0-2.2) Blood Type Antibody Screen Crossmatch IS Only 12/07/21 12/06/21 12/06/21 Range/Units 05:46 15:13 15:10 WBC 6.1 (4.8-10.8) x10^3/uL RBC 3.37 L (4.70-6.10) 10^6/uL Hgb 9.0 L (14.0-18.0) g/dL Hct 28.3 L (42.0-52.0) % MCV 84.0 (80.0-94.0) fL MCH 26.7 L (27.0-31.0) pg MCHC 31.8 L (32.0-36.0) g/dL RDW 19.9 H (12.0-15.0) % Plt Count 104 L (130-450) 10^3/uL MPV 10.2 (7.4-11.4) fL Neut # (Auto) 3.9 (1.5-6.6) 10^3/uL Lymph # (Auto) 1.0 L (1.5-3.5) 10^3/uL Real # (Auto) 0.6 (0.0-1.0) 10^3/uL Eos # (Auto) 0.5 (0.0-0.7) 10^3/uL Baso # (Auto) 0.0 (0.0-0.1) 10^3/uL Absolute Nucleated RBC 0.00 x10^3/uL Nucleated RBC % 0.0 /100WBC PT (9.9-12.6) secs INR (0.8-1.2) Bld Gas Analysis Time Sample Site ABG pH (7.35-7.45) ABG pCO2 (34-45) mmHg ABG pO2 (80-100) mmHg ABG HCO3 (22.0-26.0) mmol/L ABG Total CO2 (21.0-29.0) MMOL/L ABG O2 Saturation (94-98) % ABG Base Excess (-2.0-3.0) mmol/L [place] Test VBG pH (7.31-7.41) Ionized Calcium (1.15-1.33) mmol/L Respiration Rate b/min O2 Delivery Device O2 Liters/Min LPM Vent Mode FiO2 EPAP cmH2O IPAP cmH2O Sodium 139 (135-145) mmol/L Potassium 5.2 H (3.5-5.0) mmol/L Chloride 105 (101-111) mmol/L Carbon Dioxide 21 (21-32) mmol/L Anion Gap 13.0 (6-13) BUN 134 H* (6-20) mg/dL Creatinine 5.6 H (0.6-1.2) mg/dL Estimated GFR (MDRD) 10 L (>89) Glucose 86 (70-100) mg/dL Lactic Acid 0.6 (0.5-2.2) mmol/L Calcium 8.5 (8.5-10.3) mg/dL Phosphorus (2.5-4.6) mg/dL Magnesium (1.7-2.8) mg/dL Total Bilirubin (0.2-1.0) mg/dL AST (10-42) IU/L ALT (10-60) IU/L Alkaline Phosphatase (42-121) IU/L B-Natriuretic Peptide (5-100) pg/mL Total Protein (6.7-8.2) g/dL Albumin (3.2-5.5) g/dL Globulin (2.1-4.2) g/dL Albumin/Globulin Ratio (1.0-2.2) Blood Type Antibody Screen Crossmatch IS Only 12/06/21 12/06/21 12/06/21 Range/Units 15:10 14:55 14:00 WBC 5.0 (4.8-10.8) x10^3/uL RBC 3.06 L (4.70-6.10) 10^6/uL Hgb 8.1 L (14.0-18.0) g/dL Hct 25.5 L (42.0-52.0) % MCV 83.3 (80.0-94.0) fL MCH 26.5 L (27.0-31.0) pg MCHC 31.8 L (32.0-36.0) g/dL RDW 19.7 H (12.0-15.0) % Plt Count 92 L (130-450) 10^3/uL MPV 9.7 (7.4-11.4) fL Neut # (Auto) 3.5 (1.5-6.6) 10^3/uL Lymph # (Auto) 0.6 L (1.5-3.5) 10^3/uL Real # (Auto) 0.5 (0.0-1.0) 10^3/uL Eos # (Auto) 0.4 (0.0-0.7) 10^3/uL Baso # (Auto) 0.0 (0.0-0.1) 10^3/uL Absolute Nucleated RBC 0.02 x10^3/uL Nucleated RBC % 0.4 /100WBC PT (9.9-12.6) secs INR (0.8-1.2) Bld Gas Analysis Time 1515 1408 Sample Site LEFT BRACHIAL LEFT BRACHIAL ABG pH 7.21 L 7.21 L (7.35-7.45) ABG pCO2 51 H 53 H (34-45) mmHg ABG pO2 86 59 L (80-100) mmHg ABG HCO3 19.7 L 20.7 L (22.0-26.0) mmol/L ABG Total CO2 21.3 22.3 (21.0-29.0) MMOL/L ABG O2 Saturation 95 89 L (94-98) % ABG Base Excess -7.9 L -7.0 L (-2.0-3.0) mmol/L [place] Test POSITIVE NOT APPLICABLE VBG pH (7.31-7.41) Ionized Calcium (1.15-1.33) mmol/L Respiration Rate 12 b/min O2 Delivery Device BiPAP NASAL CANNULA O2 Liters/Min 4.00 LPM Vent Mode SYNCHRONOUS/TIMES FiO2 40.00 EPAP 6 cmH2O IPAP 14 cmH2O Sodium (135-145) mmol/L Potassium (3.5-5.0) mmol/L Chloride (101-111) mmol/L Carbon Dioxide (21-32) mmol/L Anion Gap (6-13) BUN (6-20) mg/dL Creatinine (0.6-1.2) mg/dL Estimated GFR (MDRD) (>89) Glucose (70-100) mg/dL Lactic Acid (0.5-2.2) mmol/L Calcium (8.5-10.3) mg/dL Phosphorus (2.5-4.6) mg/dL Magnesium (1.7-2.8) mg/dL Total Bilirubin (0.2-1.0) mg/dL AST (10-42) IU/L ALT (10-60) IU/L Alkaline Phosphatase (42-121) IU/L B-Natriuretic Peptide (5-100) pg/mL Total Protein (6.7-8.2) g/dL Albumin (3.2-5.5) g/dL Globulin (2.1-4.2) g/dL Albumin/Globulin Ratio (1.0-2.2) Blood Type Antibody Screen Crossmatch IS Only 12/05/21 Range/Units 18:27 WBC (4.8-10.8) x10^3/uL RBC (4.70-6.10) 10^6/uL Hgb (14.0-18.0) g/dL Hct (42.0-52.0) % MCV (80.0-94.0) fL MCH (27.0-31.0) pg MCHC (32.0-36.0) g/dL RDW (12.0-15.0) % Plt Count (130-450) 10^3/uL MPV (7.4-11.4) fL Neut # (Auto) (1.5-6.6) 10^3/uL Lymph # (Auto) (1.5-3.5) 10^3/uL Real # (Auto) (0.0-1.0) 10^3/uL Eos # (Auto) (0.0-0.7) 10^3/uL Baso # (Auto) (0.0-0.1) 10^3/uL Absolute Nucleated RBC x10^3/uL Nucleated RBC % /100WBC PT (9.9-12.6) secs INR (0.8-1.2) Bld Gas Analysis Time Sample Site ABG pH (7.35-7.45) ABG pCO2 (34-45) mmHg ABG pO2 (80-100) mmHg ABG HCO3 (22.0-26.0) mmol/L ABG Total CO2 (21.0-29.0) MMOL/L ABG O2 Saturation (94-98) % ABG Base Excess (-2.0-3.0) mmol/L [place] Test VBG pH (7.31-7.41) Ionized Calcium (1.15-1.33) mmol/L Respiration Rate b/min O2 Delivery Device O2 Liters/Min LPM Vent Mode FiO2 EPAP cmH2O IPAP cmH2O Sodium (135-145) mmol/L Potassium (3.5-5.0) mmol/L Chloride (101-111) mmol/L Carbon Dioxide (21-32) mmol/L Anion Gap (6-13) BUN (6-20) mg/dL Creatinine (0.6-1.2) mg/dL Estimated GFR (MDRD) (>89) Glucose (70-100) mg/dL Lactic Acid (0.5-2.2) mmol/L Calcium (8.5-10.3) mg/dL Phosphorus (2.5-4.6) mg/dL Magnesium (1.7-2.8) mg/dL Total Bilirubin (0.2-1.0) mg/dL AST (10-42) IU/L ALT (10-60) IU/L Alkaline Phosphatase (42-121) IU/L B-Natriuretic Peptide (5-100) pg/mL Total Protein (6.7-8.2) g/dL Albumin (3.2-5.5) g/dL Globulin (2.1-4.2) g/dL Albumin/Globulin Ratio (1.0-2.2) Blood Type O POSITIVE Antibody Screen NEGATIVE Crossmatch IS Only See Detail Assessment/Plan - Problem List (1) Acute respiratory failure with hypoxia Impression: He is hypoxic requiring BiPAP with intermittent breaks on nasal cannula requiring 4 to 5 L of oxygen. Most recent x-ray suggested pneumonia or pulmonary edema. He has been treated with antibiotics empirically. We have also been diuresing him given the concern for heart failure. We will continue with BiPAP intermittently and we will reassess him again this morning for further IV Lasix. His urine output has been on the lower end and I suspect if his renal function has not recovered he will likely need dialysis which will help with his respiratory failure. We will repeat a chest x-ray today. (2) Acute kidney injury superimposed on CKD Impression: He has worsening renal function his creatinine is now 5.8 with a BUN in the 140s. Fortunately his electrolytes are acceptable as well as his bicarbonate. He is hypoxic but we will continue to diurese him as tolerated. I suspect there may be a component of ATN given he was hypotensive initially. Imaging revealed no obstruction.. I spoke with his chef teacher, Dr. Dorman of [facility], and he agreed that transfer is likely warranted at this time as the patient may need dialysis. I have put him on the waiting list at the [facility]. My colleague has called other facilities and there are no beds available. We will continue to monitor his renal function closely. Avoid nephrotoxins. (3) Altered mental status Impression: He is somewhat altered as he is slow to respond to questions and this is likely related to the elevated BUN and his acute renal failure. Imaging has not revealed any acute abnormalities. He will likely ultimately need hemodialysis if his renal function does not improve. (4) Community acquired pneumonia Impression: Chest x-ray was concerning for pneumonia and he was treated empirically with azithromycin and ceftriaxone. Will be the last day of antibiotics. We will repeat a chest x-ray today as I suspect his hypoxia is likely due to pulmonary edema rather than the pneumonia. (5) Chronic systolic congestive heart failure, NYHA class 3 Impression: His most recent echocardiogram revealed an ejection fraction of about 45%. His BNP is elevated in the 600s but his x-ray did suggest pulmonary edema. He does not appear to be overtly hypervolemic but I suspect with his renal failure that he is definitely at risk of exacerbating his heart failure. We will continue to diurese him as tolerated. We will look to give him another 80 mg of IV Lasix today. We will repeat a chest x-ray and obtain echocardiogram. Continue to check daily weights and strict I's and O's. (6) Elevated INR (international normalized ratio) Impression: His INR was elevated at 5 on admission. He was given vitamin K given in the hematuria. We have since been holding his Coumadin. If his hemoglobin remained stable we will look to resume his Coumadin. (7) Hematuria Impression: This was likely secondary to the coagulopathy. His hematuria has resolved but he will likely need further work-up of this at some point. (8) Anemia Impression: His anemia is likely multifactorial and related to his chronic kidney disease as well as iron deficiency. He received 2 units of packed red blood cell. Has been no further evidence of rebleeding since his hematuria resolved. His hemoglobin appears to have stabilized. We will continue oral iron and monitor at this time. He may benefit from IV iron on outpatient basis as well as EPO. (9) Thrombocytopenia Impression: His platelet count had decreased to as low as the 60s and he received a transfusion given he had hematuria. His platelet count has since been stable around 100. It is not clear what the cause of his thrombocytopenia is. We will continue to monitor. (11) Chronic a-fib Impression: He is rate controlled. We will look to resume carvedilol today but we are holding his Coumadin for the time being. (12) Hypothyroidism Impression: His TSH was slightly increased at 6.4. We will continue his home Synthroid regimen. (13) Hypotension Impression: This appears to have resolved. He is no longer requiring norepinephrine we will discontinue the midodrine now that he is hypertensive again. His blood pressure stabilizes we will look to resume his home antihypertensives including carvedilol and hydralazine. No losartan due to the acute kidney injury.
[2021-12-07] MEDS: cefTRIAXone 1 GM in SODIUM CHLORIDE 0.9% MINIBAG 100 ML IV SCH (09:39)
[2021-12-07] MEDS: allopurinoL 100 MG TABLET PO SCH (09:44)
[2021-12-07] MEDS: FERROUS SULFATE 325 MG TABLET PO SCH (09:44)
[2021-12-07] MEDS: SODIUM CHLORIDE FLUSH 0.9% 10 ML SYRINGE IVP PRN ×2 (10:15→11:40)
[2021-12-07] MEDS ORDERED: FUROSEMIDE 40 MG/4 ML VIAL IVP STA (10:51)
[2021-12-07 13:53] LABS: CALCIUM 9.1 mg/dL (8.5-10.3); CREATININE 5.9 mg/dL (0.6-1.2); POTASSIUM 4.9 mmol/L (3.5-5.0)
--- NOTE | 2021-12-07 14:33 | XRAY Report ---
PROCEDURE: Chest 1 View X-Ray INDICATIONS: Dyspnea, hypoxemia TECHNIQUE: One view of the chest was acquired. COMPARISON: 12/03/2021 FINDINGS: The enlarged cardiac silhouette. Diffuse interstitial opacity likely reflecting pulmonary edema. No o bvious pleural effusion or evidence of pneumothorax. IMPRESSION: Markedly enlarged cardiac silhouette likely reflects cardiomegaly and is similar to the comparison [facility]. Pericardial fusion cannot be strictly excluded. Moderate pulmonary edema. Reviewed by: Benjie Alba MD on 12/07/2021 2:31 PM PST Approved by: Benjie Alba MD on 12/07/2021 2:31 PM PST Station ID: [id number]
[2021-12-07] MEDS: ISOSORBIDE MONONITRATE ER 30 MG TABLET PO SCH (21:09)
[2021-12-07] MEDS: ATORVASTATIN 10 MG TABLET PO SCH (21:09)
[2021-12-07] MEDS: FAMOTIDINE 20 MG TABLET PO SCH (21:09)
[2021-12-08] MEDS: SODIUM CHLORIDE FLUSH 0.9% 10 ML SYRINGE IVP SCH ×3 (01:02→16:03)
[2021-12-08] MEDS ORDERED: ZINC OXIDE 20% OINT 30 GM TUBE TOP PRN (05:27)
[2021-12-08 05:30] LABS: CALCIUM, IONIZED 1.22 mmol/L (1.15-1.33); VBG PH 7.166 (7.31-7.41)
[2021-12-08 05:32] LABS: BASOPHILS % (AUTO) 0.6 %; EOSINOPHILS # (AUTO) 0.6 10^3/uL (0.0-0.7); EOSINOPHILS % (AUTO) 10.7 %; HGB - HEMOGLOBIN 8.5 g/dL (14.0-18.0); LYMPHOCYTES # (AUTO) 0.8 10^3/uL (1.5-3.5); LYMPHOCYTES % (AUTO) 15.1 %; MEAN CORPUSCULAR HEMOGLOBIN 26.8 pg (27.0-31.0); MEAN CORPUSCULAR HGB CONC 31.5 g/dL (32.0-36.0); MEAN CORPUSCULAR VOLUME 85.2 fL (80.0-94.0); MEAN PLATELET VOLUME 9.8 fL (7.4-11.4); MONOCYTES # (AUTO) 0.5 10^3/uL (0.0-1.0); MONOCYTES % (AUTO) 8.5 %; NEUTROPHILS # (AUTO) 3.4 10^3/uL (1.5-6.6); NEUTROPHILS % (AUTO) 64.3 %; PLT - PLATELET COUNT 84 10^3/uL (130-450); RED BLOOD COUNT 3.17 10^6/uL (4.70-6.10); RED CELL DISTRIBUTION WIDTH 20.1 % (12.0-15.0); WHITE BLOOD COUNT 5.3 x10^3/uL (4.8-10.8)
[2021-12-08 05:50] LABS: CALCIUM 9.4 mg/dL (8.5-10.3); CREATININE 6.1 mg/dL (0.6-1.2); POTASSIUM 5.1 mmol/L (3.5-5.0)
[2021-12-08 05:56] LABS: SLIDE REVIEW? Indicated
[2021-12-08 06:03] LABS: PLATELET ESTIMATE, MANUAL DECREASED (<130,000) (NORMAL)
[2021-12-08] MEDS: LEVOTHYROXINE 100 MCG TABLET PO SCH (06:30)
[2021-12-08] MEDS ORDERED: SODIUM BICARBONATE 150 MEQ in DEXTROSE 5% 1,000 ML IV SCH (08:00)
[2021-12-08 08:10] LABS: MAGNESIUM 2.3 mg/dL (1.7-2.8); PHOSPHORUS 8.1 mg/dL (2.5-4.6)
[2021-12-08] MEDS: FERROUS SULFATE 325 MG TABLET PO SCH (08:25)
[2021-12-08] MEDS: allopurinoL 100 MG TABLET PO SCH (08:27)
[2021-12-08] MEDS: cefTRIAXone 1 GM in SODIUM CHLORIDE 0.9% MINIBAG 100 ML IV SCH (08:27)
[2021-12-08 14:41] LABS: ABG BASE EXCESS -6.7 mmol/L (-2.0-3.0); ABG HCO3 22.2 mmol/L (22.0-26.0); ABG OXYGEN SATURATION 88 % (94-98); ABG PO2 60 mmHg (80-100); ABG TCO2 24.1 MMOL/L (21.0-29.0); ALLEN TEST POSITIVE
[2021-12-08 14:45] LABS: ABG PCO2 64 mmHg (34-45); ABG PH 7.16 (7.35-7.45)
--- NOTE | 2021-12-08 14:58 | PROVIDER PROGRESS NOTE ---
Subjective - Prog Note Date Prog Note Date: 12/08/21 - Subjective Subjective: Nursing reports he has been somnolent at times and other times he will be more awake and for spitting in a conversation. Patient denies any shortness of breath and reports feeling well. Current Medications - Current Medications Current Medications: Active Medications Acetaminophen (Acetaminophen 325 Mg Tablet) 650 mg PO Q4HR PRN PRN Reason: Pain or Fever > 38C (100.4F) Atorvastatin Calcium (Atorvastatin 10 Mg Tablet) 10 mg PO QPM [facility] Last Admin: 12/07/21 21:09 Dose: 10 mg Calamine (Calamine/Zinc Oxide 177 Ml Bottle) 1 applic TOP PRN PRN PRN Reason: SKIN CARE Famotidine (Famotidine 20 Mg Tablet) 20 mg PO HS [facility] Last Admin: 12/07/21 21:09 Dose: 20 mg Ferrous Sulfate (Ferrous Sulfate 325 Mg Tablet) 325 mg PO DAILYWM [facility] Last Admin: 12/08/21 08:25 Dose: 325 mg Sodium Chloride (Normal Saline 0.9%) 500 mls @ 20 mls/hr IV Q24H PRN PRN Reason: TKO RATE Sodium Bicarbonate 150 meq/ (Dextrose) 1,150 mls @ 100 mls/hr IV .[id number] [facility] Stop: 12/08/21 19:29 Last Admin: 12/08/21 08:47 Dose: 100 mls/hr Isosorbide Mononitrate (Isosorbide Mononitrate Er 30 Mg Tablet) 30 mg PO QPM [facility] Last Admin: 12/07/21 21:09 Dose: 30 mg Levothyroxine Sodium (Levothyroxine 100 Mcg Tablet) 200 mcg PO QDAC [facility] Last Admin: 12/08/21 06:30 Dose: 200 mcg Multi-Ingredient Ointment (Zinc Oxide 20% Oint 30 Gm Tube) 1 applic TOP PRN PRN PRN Reason: Skin Care Last Admin: 12/08/21 06:00 Dose: 1 applic Ondansetron HCl (Ondansetron 4 Mg/2 Ml Vial) 4 mg IVP Q6HR PRN PRN Reason: Nausea / Vomiting Sodium Chloride (Sodium Chloride Flush 0.9% 10 Ml Syringe) 10 ml IVP 0100,0900,1700 [facility] Last Admin: 12/08/21 08:33 Dose: 10 ml Sodium Chloride (Sodium Chloride Flush 0.9% 10 Ml Syringe) 10 ml IVP PRN PRN PRN Reason: NEEDED PER PROVIDER ORDERS Last Admin: 12/07/21 11:40 Dose: 10 ml Sodium Chloride (Sodium Chloride Flush 0.9% 10 Ml Syringe) 20 ml IVP PRN PRN PRN Reason: After Blood Draw Last Admin: 12/05/21 00:05 Dose: 20 ml Atorvastatin [Lipitor] 10 mg PO QPM 12/03/21 Carvedilol [Coreg] 6.25 mg PO BID 12/03/21 Torsemide 20 mg PO DAILY 12/03/21 allopurinoL [Zyloprim] 100 mg PO DAILY 12/03/21 Hydralazine HCl 50 mg PO TID 12/04/21 Isosorbide Mononitrate [Isosorbide Mononitrate ER] 30 mg PO QPM 12/04/21 Levothyroxine Sodium [Synthroid] 200 mcg PO SUTUWEFRSA@0700 12/04/21 Losartan Potassium 25 mg PO QPM 12/04/21 Sodium Bicarbonate 650 mg PO BID 12/04/21 Warfarin [Coumadin] 1 mg PO MO@2100 12/04/21 Warfarin [Coumadin] 2.5 mg PO SUTUWETHFRSA@2100 12/04/21 Cholecalciferol [Vitamin D3] 25 mcg PO DAILY 12/06/21 Ferrous Sulfate 325 mg PO DAILYWM 12/06/21 Levothyroxine Sodium [Synthroid] 250 mcg PO MOTH@0700 12/06/21 Multivitamin [Theragran] 1 tab PO DAILY 12/06/21 Vit A/Vit C/Vit E/Zinc/Copper [Preservision Areds Softgel] 1 cap PO QPM 12/06/21 Objective - Vital Signs/Intake & Output Reviewed Vital Signs: Yes Vital Signs: Vital Signs Temp Pulse Resp BP Pulse Ox 12/08/21 14:00 74 14 115/69 97 12/08/21 13:00 70 16 108/67 90 L 12/08/21 12:00 36.4 C L 70 16 112/66 92 12/08/21 11:00 70 16 106/70 94 Intake & Output: Intake & Output 12/05/21 12/06/21 12/07/21 12/08/21 23:59 23:59 23:59 23:59 Intake Total 3047.563 725 100 500 Output Total 5473 9488 1865 845 Balance 1242.563 -563 -1765 -345 - Objective General Appearance: positive: No acute distress, Lethargic Eyes Bilateral: positive: Conjunctivae nml ENT: positive: ENT inspection nml, Other (BiPAP mask in place.) Neck: positive: Nml inspection Respiratory: positive: Rhonchi, Other (He is tachypnic.) Cardiovascular: positive: Irregularly irregular, Systolic murmur. negative: Tachycardia Abdomen: positive: Non-tender, No distention. negative: Tenderness Extremities: positive: Pedal edema (+1 edema in bilateral lower extremities.) Neurologic/Psychiatric: positive: Other (No focal deficits.). negative: Disoriented to person, Disoriented to place - Lab Results Fish Bones: 12/08/21 05:18 12/08/21 15:16 Other Labs: Lab Results x24hrs 12/08/21 12/08/21 12/08/21 Range/Units 12:04 06:08 05:18 WBC (4.8-10.8) x10^3/uL RBC (4.70-6.10) 10^6/uL Hgb (14.0-18.0) g/dL Hct (42.0-52.0) % MCV (80.0-94.0) fL MCH (27.0-31.0) pg MCHC (32.0-36.0) g/dL RDW (12.0-15.0) % Plt Count (130-450) 10^3/uL MPV (7.4-11.4) fL Neut # (Auto) (1.5-6.6) 10^3/uL Lymph # (Auto) (1.5-3.5) 10^3/uL Haskell # (Auto) (0.0-1.0) 10^3/uL Eos # (Auto) (0.0-0.7) 10^3/uL Baso # (Auto) (0.0-0.1) 10^3/uL Absolute Nucleated RBC x10^3/uL Nucleated RBC % /100WBC Manual Slide Review Platelet Estimate (NORMAL) RBC Morph Micro Appear (NORMAL) VBG pH (7.31-7.41) Ionized Calcium (1.15-1.33) mmol/L Sodium (135-145) mmol/L Potassium (3.5-5.0) mmol/L Chloride (101-111) mmol/L Carbon Dioxide (21-32) mmol/L Anion Gap (6-13) BUN (6-20) mg/dL Creatinine (0.6-1.2) mg/dL Estimated GFR (MDRD) (>89) Glucose (70-100) mg/dL POC Whole Bld Glucose 109 H 85 (70 - 100) mg/dL Calcium (8.5-10.3) mg/dL Phosphorus 8.1 H (2.5-4.6) mg/dL Magnesium 2.3 (1.7-2.8) mg/dL B-Natriuretic Peptide (5-100) pg/mL 12/08/21 12/08/21 12/08/21 Range/Units 05:18 05:18 05:18 WBC 5.3 (4.8-10.8) x10^3/uL RBC 3.17 L (4.70-6.10) 10^6/uL Hgb 8.5 L (14.0-18.0) g/dL Hct 27.0 L (42.0-52.0) % MCV 85.2 (80.0-94.0) fL MCH 26.8 L (27.0-31.0) pg MCHC 31.5 L (32.0-36.0) g/dL RDW 20.1 H (12.0-15.0) % Plt Count 84 L (130-450) 10^3/uL MPV 9.8 (7.4-11.4) fL Neut # (Auto) 3.4 (1.5-6.6) 10^3/uL Lymph # (Auto) 0.8 L (1.5-3.5) 10^3/uL Haskell # (Auto) 0.5 (0.0-1.0) 10^3/uL Eos # (Auto) 0.6 (0.0-0.7) 10^3/uL Baso # (Auto) 0.0 (0.0-0.1) 10^3/uL Absolute Nucleated RBC 0.00 x10^3/uL Nucleated RBC % 0.0 /100WBC Manual Slide Review Indicated Platelet Estimate DECREASED (<130,000) (NORMAL) RBC Morph Micro Appear 1+ OVALOCYTES (NORMAL) VBG pH (7.31-7.41) Ionized Calcium (1.15-1.33) mmol/L Sodium 142 (135-145) mmol/L Potassium 5.1 H (3.5-5.0) mmol/L Chloride 105 (101-111) mmol/L Carbon Dioxide 21 (21-32) mmol/L Anion Gap 16.0 H (6-13) BUN 151 H* (6-20) mg/dL Creatinine 6.1 H (0.6-1.2) mg/dL Estimated GFR (MDRD) 9 L (>89) Glucose 89 (70-100) mg/dL POC Whole Bld Glucose (70 - 100) mg/dL Calcium 9.4 (8.5-10.3) mg/dL Phosphorus (2.5-4.6) mg/dL Magnesium (1.7-2.8) mg/dL B-Natriuretic Peptide 510 H (5-100) pg/mL 12/08/21 12/08/21 Range/Units 05:18 00:29 WBC (4.8-10.8) x10^3/uL RBC (4.70-6.10) 10^6/uL Hgb (14.0-18.0) g/dL Hct (42.0-52.0) % MCV (80.0-94.0) fL MCH (27.0-31.0) pg MCHC (32.0-36.0) g/dL RDW (12.0-15.0) % Plt Count (130-450) 10^3/uL MPV (7.4-11.4) fL Neut # (Auto) (1.5-6.6) 10^3/uL Lymph # (Auto) (1.5-3.5) 10^3/uL Haskell # (Auto) (0.0-1.0) 10^3/uL Eos # (Auto) (0.0-0.7) 10^3/uL Baso # (Auto) (0.0-0.1) 10^3/uL Absolute Nucleated RBC x10^3/uL Nucleated RBC % /100WBC Manual Slide Review Platelet Estimate (NORMAL) RBC Morph Micro Appear (NORMAL) VBG pH 7.166 L (7.31-7.41) Ionized Calcium 1.22 (1.15-1.33) mmol/L Sodium (135-145) mmol/L Potassium (3.5-5.0) mmol/L Chloride (101-111) mmol/L Carbon Dioxide (21-32) mmol/L Anion Gap (6-13) BUN (6-20) mg/dL Creatinine (0.6-1.2) mg/dL Estimated GFR (MDRD) (>89) Glucose (70-100) mg/dL POC Whole Bld Glucose 89 (70 - 100) mg/dL Calcium (8.5-10.3) mg/dL Phosphorus (2.5-4.6) mg/dL Magnesium (1.7-2.8) mg/dL B-Natriuretic Peptide (5-100) pg/mL Assessment/Plan - Problem List (1) Acute respiratory failure with hypoxia Impression: Continues to require BiPAP with intermittent breaks on nasal cannula. He was more somnolent this afternoon and we obtained an ABG which showed pH 7.16 and a CO2 greater than 60. He placed him back on BiPAP after 3-hour break. He now has hypoxia and hypercapnia suspect this is related to exacerbation of his CHF. We will give him another dose of 100 mg Lasix IV today. Chest x-ray yesterday continues to show pulmonary edema. He does not need hemodialysis to help with his volume status and he is looking to transfer him to higher level of care. I did speak with [facility] and they are not sure if a bed will be available today but they feel that if he does not improve on BiPAP with a pH greater than 7.25 then he will need to be intubated prior to transfer. I did discuss this with his and she is in agreement with the plan. She would like him to be DNR but she is agreeable to intubation only. (2) Acute kidney injury superimposed on CKD Impression: His renal function continues to decline and his creatinine is now above 6 and his BUN is 150. His potassium is 5.1. He made nearly 1.9 L of urine yesterday but today has only had 800 mL of urine output. I discussed with his lineman apprentice yesterday and it was felt that the patient likely needed hemodialysis at this point in time. Unfortunately [facility] has no beds and they are taking patients in transfer based off of need for emergent procedures. I also spoke with [facility] in [place] and the patient has already been on the wait list. They are boarding over 40 patients in their ER and they are not sure when a bed will become available. I did call [facility] yesterday for assistance with finding a bed for this patient as he needs hemodialysis at this point in time. I spoke with him again today to see if there are any updates and they are still working on finding him a bed. They are aware that his potassium is increasing as well as his BUN and creatinine and that his urine output is decreased. I am worried that he is becoming hypervolemic and dialysis is necessary at this point in time. We will give him another dose of 100 mg of IV Lasix today to see if this will increase his urine output. (3) Altered mental status Impression: This is ongoing and likely secondary to his renal failure and elevated BUN. We did repeat an ABG this afternoon and his CO2 is increasing again as it is now 60 and his pH is less than 7.2. We will place him back on BiPAP. He will ultimately need dialysis to help with the concern for uremia and volume status. We will repeat ABG in 2 hours and if there is no improvement we will need to consider intubation. (4) Mixed acid base balance disorder Impression: He likely has mixed acid-base secondary to hypercapnia as well as metabolic acidosis due to the acute on chronic kidney failure. We have started him on sod ium bicarb and today we will give him 3 A of bicarbonate at 100 mL an hour for 1 L. We will repeat BMP this afternoon. (5) Chronic systolic congestive heart failure, NYHA class 3 Impression: He has acute on chronic systolic congestive heart failure. Echocardiogram revealed an EF of 35%. His BNP is not significantly elevated but he does have edema on x-ray as well as some lower extremity edema. We will continue diuresis with IV Lasix. Suspect he will likely need hemodialysis to assist with his hypervolemia. (6) Pericardial effusion Impression: Echocardiogram revealed a large pericardial effusion which is increased compared to prior echocardiogram. There is no evidence of tamponade. This was discussed with cardiology at [facility] and they feel that this point time no immediate intervention is warranted. (7) Community acquired pneumonia Impression: Concern for community-acquired pneumonia and he was treated with ceftriaxone and azithromycin. He completed the treatment. In hindsight, it is less likely he had pneumonia and is respiratory failure is likely due to heart failure. (8) Elevated INR (international normalized ratio) Impression: His INR was elevated at 5 on admission. He was given vitamin K given in the h ematuria. We have continue to hold his Coumadin as he will likely need a dialysis catheter. (9) Hematuria Impression: This was likely secondary to the supratherapeutic INR. His hematuria has resolved but he will likely need further work-up of this at some point. (10) Anemia Impression: His anemia is likely multifactorial and related to his chronic kidney disease as well as iron deficiency. He received 2 units of packed red blood cell. Has been no further evidence of rebleeding since his hematuria resolved. His hemoglobin appears to have stabilized. We will continue oral iron and monitor at this time. He may benefit from IV iron on outpatient basis as well as EPO. (11) Thrombocytopenia Impression: His platelet count had decreased to as low as the 60s and he received a transfusion given he had hematuria. His platelet count has since been stable although slightly decreased today to the 80's. It is not clear what the cause of his thrombocytopenia is. We will continue to monitor. (12) Aortic stenosis Impression: Echocardiogram revealed moderate aortic stenosis. (13) Chronic a-fib Impression: He remains rate controlled without the use of carvedilol. (14) Hypothyroidism Impression: His TSH was slightly increased at 6.4. We will continue his home Synthroid regimen. (15) Hypotension Impression: Resolved. He is normotensive.
[2021-12-08] MEDS ORDERED: FUROSEMIDE 100 MG/10 ML VIAL IVP ONE (15:30)
[2021-12-08 15:43] LABS: CALCIUM 9.1 mg/dL (8.5-10.3); CREATININE 5.9 mg/dL (0.6-1.2); POTASSIUM 4.8 mmol/L (3.5-5.0)
[2021-12-08 16:44] LABS: ABG HCO3 23.7 mmol/L (22.0-26.0); ABG PO2 75 mmHg (80-100); ABG TCO2 25.6 MMOL/L (21.0-29.0)
[2021-12-08 16:45] LABS: ABG BASE EXCESS -4.7 mmol/L (-2.0-3.0); ABG MODE OF VENTILATION SYNCHRONOUS/TIMES; ABG OXYGEN SATURATION 93 % (94-98); ALLEN TEST POSITIVE
[2021-12-08 16:47] LABS: ABG PH 7.19 (7.35-7.45)
[2021-12-08 16:48] LABS: ABG PCO2 63 mmHg (34-45)
[2021-12-08 20:06] LABS: ABG BASE EXCESS -3.9 mmol/L (-2.0-3.0); ABG HCO3 23.5 mmol/L (22.0-26.0); ABG PCO2 56 mmHg (34-45); ABG PH 7.24 (7.35-7.45); ABG PO2 71 mmHg (80-100); ABG TCO2 25.2 MMOL/L (21.0-29.0)
[2021-12-08 20:07] LABS: ABG OXYGEN SATURATION 93 % (94-98); ALLEN TEST POSITIVE
[2021-12-08 20:08] LABS: ABG RESPIRATORY RATE 18 b/min
[2021-12-08] MEDS: ATORVASTATIN 10 MG TABLET PO SCH (21:10)
[2021-12-08] MEDS: FAMOTIDINE 20 MG TABLET PO SCH (21:10)
[2021-12-08] MEDS: SODIUM CHLORIDE FLUSH 0.9% 10 ML SYRINGE IVP PRN (21:10)
[2021-12-08] MEDS: ISOSORBIDE MONONITRATE ER 30 MG TABLET PO SCH (21:10)
[2021-12-08 22:23] LABS: ALBUMIN 3.1 g/dL (3.2-5.5); BILIRUBIN,TOTAL 0.9 mg/dL (0.2-1.0); POTASSIUM 4.5 mmol/L (3.5-5.0); TOTAL PROTEIN 6.2 g/dL (6.7-8.2)
[2021-12-09] MEDS: SODIUM CHLORIDE FLUSH 0.9% 10 ML SYRINGE IVP SCH (00:15)
[2021-12-09 05:20] LABS: BASOPHILS % (AUTO) 0.5 %; EOSINOPHILS # (AUTO) 0.7 10^3/uL (0.0-0.7); EOSINOPHILS % (AUTO) 11.9 %; HCT - HEMATOCRIT 26.1 % (42.0-52.0); HGB - HEMOGLOBIN 8.3 g/dL (14.0-18.0); LYMPHOCYTES # (AUTO) 0.7 10^3/uL (1.5-3.5); LYMPHOCYTES % (AUTO) 10.7 %; MEAN CORPUSCULAR HEMOGLOBIN 26.7 pg (27.0-31.0); MEAN CORPUSCULAR HGB CONC 31.8 g/dL (32.0-36.0); MEAN CORPUSCULAR VOLUME 83.9 fL (80.0-94.0); MEAN PLATELET VOLUME 10.1 fL (7.4-11.4); MONOCYTES # (AUTO) 0.5 10^3/uL (0.0-1.0); MONOCYTES % (AUTO) 8.8 %; NEUTROPHILS # (AUTO) 4.1 10^3/uL (1.5-6.6); NEUTROPHILS % (AUTO) 67.4 %; PLT - PLATELET COUNT 81 10^3/uL (130-450); RED BLOOD COUNT 3.11 10^6/uL (4.70-6.10); WHITE BLOOD COUNT 6.1 x10^3/uL (4.8-10.8)
[2021-12-09 05:30] LABS: CALCIUM 9.1 mg/dL (8.5-10.3); POTASSIUM 4.5 mmol/L (3.5-5.0)
[2021-12-09] MEDS: LEVOTHYROXINE 100 MCG TABLET PO SCH (06:21)
--- NOTE | 2021-12-09 06:36 | Discharge Plan ---
Discharge Plan Problem Reviewed?: Yes Disposition: 02 Transfer Acute Care Hosp Condition: Serious Diet: Low Sodium Activity Restrictions: Activity as Tolerated Shower Restrictions: No Driving Restrictions: Yes (no driving) No Smoking: If you smoke, Please STOP! Call for help. Follow-up with: Martin Encinas MD [Primary Care Provider] -
--- NOTE | 2021-12-09 06:37 | DISCHARGE SUMMARY ---
Discharge Summary Admit Date: 12/03/21 Discharge Date: 12/09/21 Discharging Provider: Harini Magana MD Primary Care Provider: Mame Wilkerson Code Status: Do Not Attempt Resuscitation Condition at Discharge: Serious Discharge Disposition: 02 Transfer Acute Care Hosp Dis[facility]: [facility] - DIAGNOSES Discharge Diagnoses with Status of Each Condition: 1. Acute on chronic kidney failure due 2 problems #2, #3, #4 2. Bradycardia 3. Chronic systolic heart failure 4. Hypotension 5. Acute respiratory failure with hypoxia 6. Metabolic encephalopathy 7. Mixed acid-base balance disorder 8. Pericardial effusion without tamponade 9. Community-acquired pneumonia 10. Supratherapeutic INR 11. Hematuria 12. Anemia of chronic disease/iron deficiency anemia 13. Thrombocytopenia 14. Moderate aortic stenosis 15. Chronic atrial fibrillation 16. Hypothyroidism 17. History of gout 18. Obstructive sleep apnea on CPAP 19. Deafness 20. Cognitive deficits, suspect dementia - HPI History of Present Illness: This is an 86 y/o white male with Hx of obesity (BMI 37), chronic Afib on Coumadin, CHF with EF 35% by Echo in 2018, EF 50% by Echo 11/09, followed by Dr Bennett at Cardiology, also Hx CKD with creat 2.8 in 2019 and creat 3.2 in 11/09, followed by at Nephrology. His last Echo done 11/09 showed a ?moderate pericardial effusion, and he has pleural effusions and ascites, thus his Workers Compensation Defense Attorney doubled his loop diuretic dose 1 week ago. His monitors his vital signs several times a day and documents them; and brought him to the ED today concerned over BP of 60 to 80 systolic for the past day. She did not give him his Hydralazine, but he took his other meds which include Coreg, Isosorbide and Torsemide. In the ED, labwork showed creat 4.6, Hgb 8.5, INR 4.9, also troponin 73 and BNP 358. The ED provider spoke to his Pilot Safety Inspector and obtained the most recent Echo information, but no beds for transferring him there were available. His BP was 90/50 and HR 40's in the ED. He received 250cc of saline and the Hospitalist Team was contacted for admission. The patient is hard of hearing and is a poor historian. Most of the ED information was obtained from his s.o. On admission his CODE BLUE wishes are to be Full Code (he told the ED provider "he has things he still wants to do"). - Past Medical History Cardiovascular: reports: Congestive heart failure, Atrial fibrillation Respiratory: reports: Sleep apnea, CPAP use Neuro: reports: Other (poor memory and tremor are noted (but he knows no Dx)) Endocrine/Autoimmune: reports: HyPOthyroidism HEENT: reports: Chronic hearing loss Musculoskeletal: reports: Gout - CONSULTS | PROCEDURES Procedures: 1. 3 chest x-rays show markedly enlarged cardiac silhouette reflecting cardiomegaly. Pericardial effusion could not be excluded. Moderate pulmonary edema. Developing airspace disease within the lung bases. 2. Head CT was without acute intracranial abnormality. Scattered ethmoid sinus disease. Without acute intracranial abnormalities or acute calvarial or fissures. Repeat head CT was done because of waxing and waning altered mental status. There is again no acute intracranial abnormalities. 3. Retroperitoneal ultrasound had simple bilateral renal cysts. No hydronephrosis. 4. Echocardiogram had a normal LV size with moderately reduced systolic function. Ejection fraction 35 to 40%. Moderately dilated RV with mildly reduced function. Severe biatrial dilation. Moderate aortic stenosis with a V- max of 3.3 m/s. Large circumferential pericardial effusion without echocardiographic finding of tamponade. Dilated ascending aorta at 4.1 cm. - HOSPITAL COURSE Hospital Course: After being admitted, and speaking to his who is power of deputy prosecuting attorney, his CODE STATUS was changed to DO NOT RESUSCITATE. She was willing to accept intubation if his acidosis was severe enough and it was required for safe transfer, but otherwise she did not want intubated. Overall the feeling was that this patient had been aggressively diuresed in the face of aortic stenosis, chronic systolic heart failure, and was also bradycardic into the 40s. This resulted in moderate to severe hypotension resulting in acute on chronic kidney failure. He is also on allopurinol. Allopurinol can worsen chronic kidney disease if it is not dosed adjusted. He is on the lowest dose possible. This resulted in metabolic encephalopathy and acute respiratory failure with hypoxia. His acute respiratory failure was treated with BiPAP off and on. He would respond to this and would become less somnolent, but as time would go on without BiPAP, he would become somnolent again. His acute kidney injury superimposed on chronic kidney disease continue to decline without improvement. He did produce urine and would sometimes produce close to 2 L of urine at a time. And then would wane down to 800 cc a day. After speaking to nephrology, the patient was accepted in transfer because the patient is a candidate for dialysis. He was transferred to [facility], after speaking to infertility medical assistant Donny Wang MD. He has mixed acid-base disorder was treated with 3 A of bicarb on the day before discharge. His CHF was of concern because he has chronic systolic heart failure and his nonoliguric renal failure put him at risk for acute systolic heart failure. He had a large pericardial effusion on echocardiogram. Preliminary report shows him to have an ejection fraction of 35 to 40%, moderately dilated RV, severe biatrial dilation, moderate aortic stenosis and a large circumferential pericardial effusion without echocardiographic findings of tamponade. On admission there was concern for community-acquired pneumonia and he was treated empirically with ceftriaxone and azithromycin. In hindsight is less likely that he had pneumonia and it was more respiratory failure due to congestive heart failure. INR was 5 in admission and he was given vitamin K because of hematuria and he has been off Coumadin due to hematuria. He received 2 units of packed cells due to his anemia. At the time of discharge hemoglobin is 8.3. Chronic atrial fibrillation rate was controlled with the use of carvedilol. During his stay he is deaf, and this sometimes interferes with her ability to communicate with him. We were never sure if metabolic encephalopathy was causing cognitive deficits or does he have dementia. His mental status did wax and wane depending on his pH status. On physical exam temperature was 36.3. Heart rate 68. Blood pressure 150/86. Respirations 19. He is 97% saturated on BiPAP. 16/6. 40% FiO2. He is alert, oriented to person and place. Neck is without JVD. Lungs have diminished breath sounds at the bases and coarse rhonchi are present. No tachypnea. He has a regular rate and rhythm. Distant cardiac tones. Abdomen is obese, soft, nontender. Last bowel movement was December 08. Extremities have thin easily terrible skin. Hyperpigmented over the legs, mild edema. He has purposeful movement. Will make himself comfortable in bed. No focal deficit. He will become intermittently confused. Greater than 30 minutes was spent coordinating discharge - ALLERGIES Allergies/Adverse Reactions: Allergies Allergy/AdvReac Type Severity Reaction Status Date / Time clindamycin Allergy Rash Verified 12/03/21 17:47 oxycodone [From OxyContin] Allergy Rash Verified 12/03/21 17:47 - MEDICATIONS Home Medications: Ambulatory Orders Medication Instructions Recorded Confirmed Atorvastatin [Lipitor] 10 mg PO QPM 12/03/21 12/04/21 Carvedilol [Coreg] 6.25 mg PO BID 12/03/21 12/04/21 Torsemide 20 mg PO DAILY 12/03/21 12/04/21 allopurinoL [Zyloprim] 100 mg PO DAILY 12/03/21 12/04/21 Hydralazine HCl 50 mg PO TID 12/04/21 12/04/21 Isosorbide Mononitrate [Isosorbide 30 mg PO QPM 12/04/21 12/06/21 Mononitrate ER] Levothyroxine Sodium [Synthroid] 200 mcg PO SUTUWEFRSA@0700 12/04/21 12/06/21 Losartan Potassium 25 mg PO QPM 12/04/21 12/06/21 Sodium Bicarbonate 650 mg PO BID 12/04/21 12/04/21 Warfarin [Coumadin] 1 mg PO MO@2100 12/04/21 12/06/21 Warfarin [Coumadin] 2.5 mg PO SUTUWETHFRSA@2100 12/04/21 12/06/21 Cholecalciferol [Vitamin D3] 25 mcg PO DAILY 12/06/21 12/06/21 Ferrous Sulfate 325 mg PO DAILYWM 12/06/21 12/06/21 Levothyroxine Sodium [Synthroid] 250 mcg PO MOTH@0700 12/06/21 12/06/21 Multivitamin [Theragran] 1 tab PO DAILY 12/06/21 12/06/21 Vit A/Vit C/Vit E/Zinc/Copper 1 cap PO QPM 12/06/21 12/06/21 [Preservision Areds Softgel] - LABS Result Diagrams: 12/09/21 04:19 12/09/21 04:19
[2021-12-09 08:49] VITALS: BP 155/86
== END 2021-12-09 08:40 | disposition short-term general hospital (02) | DRG 682 ==
LOC: ED 17:31 → ICU 20:11 → UNDODISIN 12-04 16:30
PROVIDERS: ADMIT Internal Medicine; ATTEND Specialist
PROC: 02HV33Z Insertion of Infusion Device into Superior Vena Cava, Percutaneous Approach (ICD-10-PCS; principal; 2021-12-04)
PROC: 30233R1 Transfusion of Nonautologous Platelets into Peripheral Vein, Percutaneous Approach (ICD-10-PCS; 2021-12-05)
PROC: 30233N1 Transfusion of Nonautologous Red Blood Cells into Peripheral Vein, Percutaneous Approach (ICD-10-PCS; 2021-12-05)
DX: I50.9 Heart failure, unspecified (principal); N18.4 Chronic kidney disease, stage 4 (severe); N17.9 Acute kidney failure, unspecified; I48.91 Unspecified atrial fibrillation; I44.7 Left bundle-branch block, unspecified; T46.5X6A Underdosing of other antihypertensive drugs, initial encounter; J96.01 Acute respiratory failure with hypoxia; R09.02 Hypoxemia; R94.31 Abnormal electrocardiogram [ECG] [EKG]; Z20.822 Contact with and (suspected) exposure to COVID-19; G93.41 Metabolic encephalopathy; J18.9 Pneumonia, unspecified organism; I50.22 Chronic systolic (congestive) heart failure; E87.4 Mixed disorder of acid-base balance; I31.3 Pericardial effusion (noninflammatory); I48.20 Chronic atrial fibrillation, unspecified; R18.8 Other ascites; E87.2 Acidosis; N18.9 Chronic kidney disease, unspecified; I35.0 Nonrheumatic aortic (valve) stenosis; I95.9 Hypotension, unspecified; D50.9 Iron deficiency anemia, unspecified; D63.1 Anemia in chronic kidney disease; D69.6 Thrombocytopenia, unspecified; E03.9 Hypothyroidism, unspecified; E66.9 Obesity, unspecified; M10.9 Gout, unspecified; G47.33 Obstructive sleep apnea (adult) (pediatric); H91.90 Unspecified hearing loss, unspecified ear; F03.90 Unspecified dementia, unspecified severity, without behavioral disturbance, psychotic disturbance, mood disturbance, and anxiety; Z66 Do not resuscitate; I87.8 Other specified disorders of veins; R00.1 Bradycardia, unspecified; R25.1 Tremor, unspecified; R31.0 Gross hematuria; R79.1 Abnormal coagulation profile; Z68.37 Body mass index [BMI] 37.0-37.9, adult; Z79.01 Long term (current) use of anticoagulants; Z79.890 Hormone replacement therapy; Z79.899 Other long term (current) drug therapy; Z88.1 Allergy status to other antibiotic agents; Z88.5 Allergy status to narcotic agent
CPT/HCPCS: 36415; 36600; 70450; 71045; 76770; 80048; 80053; 81001; 82330; 82533; 82570; 82607; 82746; 82803; 83540; 83605; 83735; 83880; 83935; 84100; 84133; 84300; 84439; 84443; 84466; 84484; 85014; 85018; 85025; 85610; 86850; 86900; 86901; 86920; 87040; 87086; 87150; 87631; 93005; 93306; 94660; 99283; 99285; A9270; J1940; P9016; P9037; P9047; 0202U